=== PATIENT | female | born 1940 | race Caucasian/White ===

== ENCOUNTER 2017-06-04 10:20 | Day surgery (SDC) | payer OTHER ==
[2017-06-04 10:33] LABS: Absolute Lymphocytes (CBC) 1.8 K/uL (0.7-4.9); Absolute Monocytes 0.5 K/uL (0.1-1.3); Absolute Neutrophil 7.5 K/uL (1.8-8.0); Basophils % 0.5 % (0-1.3); Eosinophils % 2.7 % (0-4.4); Lymphocytes % 17.9 % (15.3-44.8); MCH 31.9 pg (27.0-35.0); MCV 92.6 fL (80-100); MPV 6.8 fL (7.6-11.3); Monocytes % 5.2 % (3.3-12.3); RBC Red Blood Cell Count 4.43 M/uL (3.86-4.86)
--- NOTE | 2017-06-04 10:45 | RAD REPORT ---
EXAM DESCRIPTION: Vicki Potter (2 Views)06/04/2017 10:17 am CLINICAL HISTORY: Abdominal pain/abdominal hernia COMPARISON: 2016 FINDINGS: The lungs appear clear of acute infiltrate. The heart is normal size. The aorta is tortuo us/ectatic IMPRESSION: No acute abnormalities displayed
[2017-06-04 10:47] LABS: Bicarbonate 30 mEq/L (21-31); Glucose Level 107 mg/dL (65-120); Potassium 3.4 mEq/L (3.6-5.0); Sodium Level 141 mEq/L (135-145)
[2017-06-04 11:03] LABS: BUN Blood Urea Nitrogen 5 mg/dL (6-20)
[2017-06-04] MEDS ORDERED: Ringers Lactate 1,000 ML IV ONE (12:33)
[2017-06-04] MEDS ORDERED: CEFAZOLIN/SWI 1gm 1 GM/10 ML SYR ONE (13:27)
[2017-06-04] MEDS ORDERED: PROPOFOL 200 MG/20 ML VIAL IV ONE (13:31)
[2017-06-04] MEDS ORDERED: LIDOCAINE 1% MPF 5 ML VIAL ONE (13:32)
[2017-06-04] MEDS ORDERED: FENTANYL CITR 100 MCG/2 ML ONE (13:32)
[2017-06-04] MEDS ORDERED: ROCURONIUM 50 MG/5 ML VIAL IV ONE (13:35)
--- NOTE | 2017-06-04 13:54 | EKG ---
Test Date: 2017-06-04 Test Time: 10:06:29 Lard Tub Washer: PALMIRA MEASUREMENT RESULTS: Intervals: Rate: 68 CA: 146 QRSD: 156 QT: 498 QTc: 529 [place]: P: 27 CA: 146 QRS: -22 T: 104 INTERPRETIVE STATEMENTS: Normal sinus rhythm Left bundle branch block Abnormal ECG Compared to ECG 11/06/2013 06:57:00 no significant change from previous ECG Electronically Signed On 06-04-17 13:53:12 CDT by Ilya Rooney
[2017-06-04] MEDS ORDERED: GLYCOPYRROLATE 0.2 MG/ML SYR ONE (14:18)
--- NOTE | 2017-06-04 14:18 | P.BOP ---
Preoperative diagnosis: tender right inguinal hernia Postoperative diagnosis: same Primary procedure: Open repair of tender right inguinal hernia with mesh Manager Card: Jacqui Orozco) Estimated blood loss: <10cc Specimen: none Findings: as above Anesthesia: General Implants: medium mesh plug and sheet Transferred to: Recovery Room Condition: Good
[2017-06-04] MEDS ORDERED: NEOSTIGMINE 1 MG/ML -5 ML SYRINGE ONE (14:23)
[2017-06-04] MEDS ORDERED: CODEINE 30MG/APAP 300MG TAB ONE (15:28)
[2017-06-04 16:37] VITALS: BP 142/58; TEMP 97.4; O2SAT 94
--- NOTE | 2017-06-05 02:37 | DS ---
Date of Discharge: 06/04/2017 Diagnosis: Tender right inguinal hernia. Procedures: Open repair of tender right inguinal hernia with mesh. Disposition: Home. Activity: As tolerated. No heavy lifting. Followup: Follow up in my office in 1 week. Call for appointment at [phone]. Keep the area dry fo r 48 hours, then may shower. Medications: Include Tylenol No. 3 q.4 hours p.r.n. pain, Bactrim DS p.o. b.i.d. YENNIFER/SIRENA Voice ID: [id number] Report ID: [id number]
--- NOTE | 2017-06-05 02:37 | OP ---
Date of Procedure: 06/04/2017 Surgeon: Nikhil Eason MD Woven Wood Shade Assembler: DEUCE Huber. Preoperative Diagnosis: Tender right inguinal hernia. Postoperative Diagnosis: Tender right inguinal hernia. Procedures: Repair of tender right inguinal hernia with mesh. Specimen: None. Findings: As above. Anesthesia: General plus local. Implants: Medium mesh plug and sheath. Indications: This is the case of a 76-year-old patient with a tender right inguinal hernia. Fully e xplained the benefits, alternatives, and risks of repair, which include, but not limited to infection , bleeding, damage to adjacent structures, anesthesia complication, recurrence, PR, and even . She also understands this may not relieve any symptoms, she might need more than one surgical interve ntion. She was explained also the pros and cons of mesh. It was explained to her in detail, also al lowed to ask questions. She signed a consent. Description Of Procedure: The patient was brought to the operating room, placed in supine position. Anesthesia was done without complication. A time-out was called. Abdomen and inguinal area were pr epped and draped in sterile fashion. Marcaine 0.5% was injected for local anesthetic, followed by sh zoey incision of the skin in the inguinal region. Incision was carried down to fascia. Cass's fasc ia was opened followed by the external oblique aponeurosis opening. We noticed the patient to have a direct hernia. A hernia sac was identified and then imbricated with the help of a mesh plug and sec ured in place with VersaTack and a sheath was placed along the inguinal canal. We made sure the ilio inguinal nerve and iliohypogastric nerve were behind external oblique aponeurosis to avoid any injury . Once we put a sheet over the area, it was secured in place to the pubic tubercle, shelving edge of inguinal ligament, transversalis fascia, and then we proceeded to bring back the nerve back into the inguinal canal, reconstructed the superficial inguinal ring, making sure the nerves were not include d on the stitch line with a 2-0 Prolene. Area was irrigated. Then, the Cass's fascia was closed w ith 3-0 chromic and skin with julian. Sponge count and instrument counts were correct. The patient tolerated the procedure well. The patient was sent to recovery in stable condition. YENNIFER/SIRENA Voice ID: [id number] Report ID: [id number]
== END 2017-06-04 16:30 | disposition home or self-care (01) ==
LOC: OR 10:20
PROVIDERS: ATTEND Surgery
PROC: 0YU50JZ Supplement Right Inguinal Region with Synthetic Substitute, Open Approach (ICD-10-PCS; principal; 2017-06-04 10:30)
DX: K40.90 Unilateral inguinal hernia, without obstruction or gangrene, not specified as recurrent (principal); F17.210 Nicotine dependence, cigarettes, uncomplicated; Z90.710 Acquired absence of both cervix and uterus
CPT/HCPCS: 36415; 49505; 71046; 80048; 85025; 93005; J0690; J2710; J3010

== ENCOUNTER 2017-06-24 10:56 | Emergency (ER) | payer OTHER ==
[2017-06-24 11:45] LABS: Absolute Lymphocytes (CBC) 2.2 K/uL (0.7-4.9); Absolute Monocytes 0.5 K/uL (0.1-1.3); Absolute Neutrophil 7.2 K/uL (1.8-8.0); Basophils % 0.7 % (0-1.3); Eosinophils % 2.6 % (0-4.4); Hematocrit 37.3 % (36.0-45.0); Lymphocytes % 21.5 % (15.3-44.8); MCV 92.3 fL (80-100); MPV 6.3 fL (7.6-11.3); Monocytes % 5.1 % (3.3-12.3); RBC Red Blood Cell Count 4.04 M/uL (3.86-4.86)
[2017-06-24 11:46] LABS: Urine Blood 1+ (NEG); Urine Glucose NEGATIVE (NEG); Urine Protein NEGATIVE (NEG); Urine Specific Gravity <1.005 (1.005-1.030); Urine pH 5.5 (5.0-7.0)
[2017-06-24 11:52] LABS: Bicarbonate 26 mEq/L (21-31); Glucose Level 107 mg/dL (65-120); Potassium 3.5 mEq/L (3.6-5.0); Sodium Level 138 mEq/L (135-145)
[2017-06-24 11:54] LABS: Urine Bacteria 20-50 /HPF (<20); Urine Culture Reflex Order NOT NEEDED; Urine RBC <5 /HPF (NONE SEEN)
[2017-06-24 12:00] LABS: Lipase 28 U/L (22-51)
[2017-06-24 12:07] LABS: ALT/SGPT 12 IU/L (10-60); AST/SGOT 21 IU/L (10-42); Alkaline Phosphatase 84 IU/L (42-121); Amylase Level 65 U/L (28-100); BUN Blood Urea Nitrogen 5 mg/dL (6-20); Bilirubin Direct < 0.1 mg/dL (0-0.2); Bilirubin Total 0.4 mg/dL (0.3-1.2)
--- NOTE | 2017-06-24 12:42 | RAD REPORT ---
EXAM DESCRIPTION: CT - Stone Protocol - 06/24/2017 12:25 pm CLINICAL HISTORY: Flank pain. COMPARISON: 05/16/2017 TECHNIQUE: Axial images were obtained without oral or IV contrast. Lack of contrast limits solid org an and vascular assessment. The [id number] spans the entirety of the system partially obscuring uppermost abdomen and lung bases. Coronal reformatted images were obtained and reviewed. All CT scans are performed using dose optimization technique as appropriate and may include automated exposure control or mA/KV adjustment according to patient size. FINDINGS: The lower lung gould are clear. Imaged portions of the liver and spleen show no suspicious findings on non-contrast imaging. Small be nign hepatic cysts suspected.Cholecystectomy clips. Mild pancreatic atrophy again seen. The adrenal g lands are normal. No pathologic lymphadenopathy in the abdomen or pelvis. No urinary tract stones or obstructive uropathy. No bowel obstruction, free air, free fluid or abscess. The appendix is not identified as a discrete s tructure, however, no secondary findings of appendicitis are identified. Scattered colonic diverticul osis. Postsurgical changes are present in the right inguinal region. Moderate lumbar degenerative changes. 3.6 cm infrarenal abdominal aortic aneurysm is noted. IMPRESSION: No urinary tract stones or obstructive uropathy. No acute process is seen.
[2017-06-24] MEDS ORDERED: POTASSIUM 25 MEQ EFFERV TAB ONE (13:17)
[2017-06-24] MEDS ORDERED: CEFTRIAXONE/SWI 1gm 2 GM/20 ML SYR ONE (13:17)
[2017-06-24] MEDS ORDERED: KETOROLAC 30 MG/ML INJ ONE (13:17)
--- NOTE | 2017-06-24 13:39 | ER ---
Nurse's Notes [facility] Name: Dinorah Judd Age: 76 yrs Sex: Female : 1940 Arrival Date: 06/24/2017 Time: 10:58 Bed 7 Private MD: Tone Cueva H Diagnosis: Urinary tract infection, site not specified Presentation: 06/24 11:01 Presenting complaint: Patient states: I have had flank pain for the last 2 weeks on the la1 left side, pt alert, oriented x3, unsure what year it is, states this is normal for her. Transition of care: patient was not received from another setting of care. Onset of symptoms was June 24, 2017. Initial Sepsis Screen: Does the patient meet any 2 criteria? No. Patient's initial sepsis screen is negative. Does the patient have a suspected source of infection? No. Patient's initial sepsis screen is negative. Care prior to arrival: None. 11:01 Method Of Arrival: Ambulatory la1 11:01 Acuity: RICHAR 3 la1 Historical: - Allergies: 11:02 No Known Allergies; la1 - PMHx: 11:02 None; la1 - Immunization history:: Adult Immunizations up to date. - Social history:: Smoking status: Patient uses tobacco products, smokes one pack cigarettes per day. Screenin:15 Abuse screen: Denies threats or abuse. Denies injuries from another. Nutritional sv screening: No deficits noted. Tuberculosis screening: No symptoms or risk factors identified. Fall Risk None identified. Assessment: 11:20 General: Appears in no apparent distress. comfortable, Behavior is calm, cooperative, sv appropriate for age. Pain: Complains of pain in left low back and left mid back Pain currently is 8 out of 10 on a pain scale. Pain began "about 2 weeks ago" Is intermittent. Neuro: Level of Consciousness is awake, alert, obeys commands, Oriented to person, place, situation, Moves all extremities. Full function Gait is steady. Respiratory: Respiratory effort is even, unlabored, Respiratory pattern is regular, symmetrical. : Urine is cloudy, Reports pain in left flank(s). Derm: Skin is normal. 13:29 Reassessment: Patient appears in no apparent distress at this time. No changes from sv previously documented assessment. Patient and/or family updated on plan of care and expected duration. Pain level reassessed. Patient is alert, oriented x 3, equal unlabored respirations, skin warm/dry/pink. 13:55 Reassessment: Patient appears in no apparent distress at this time. Patient and/or sv family updated on plan of care and expected duration. Pain level reassessed. Patient is alert, oriented x 3, equal unlabored respirations, skin warm/dry/pink. Vital Signs: 11:02 BP 158 / 98; Pulse 85; Resp 19; Temp 98.3; Pulse Ox 100% on R/A; Weight 54.43 kg; la1 Height 5 ft. 2 in. (157.48 cm); 13:15 BP 175 / 67; Pulse 79; Resp 18; Pulse Ox 99% on R/A; jb1 11:02 Body Mass Index 21.95 (54.43 kg, 157.48 cm) la1 ED Course: 10:58 Patient arrived in ED. mr 10:58 Tone Cueva DO is Private Physician. mr 11:02 Triage completed. la1 11:03 Arm band placed on right wrist. la1 11:06 Aly Toledo PA is PHCP. cp 11:06 Luis Carlos Krishnan MD is Attending Physician. cp 11:12 Gina Bell, GUSTAVO is Primary Nurse. sv 11:15 Patient has correct armband on for positive identification. Bed in low position. Call sv light in reach. Door closed. Head of bed elevated. 11:38 Initial lab(s) drawn, by me, sent to lab. Inserted saline lock: 22 gauge in right jb1 antecubital area, using aseptic technique. Blood collected. 12:23 CT completed. Patient moved to CT via wheelchair. Patient moved back from CT. cw1 12:24 CT Stone Protocol In Process Unspecified. EDMS 13:55 No provider procedures requiring assistance completed. IV discontinued, intact, sv bleeding controlled, No redness/swelling at site. Pressure dressing applied. Administered Medications: 13:18 Drug: TORadol 30 mg Route: IVP; Site: right antecubital; sv 13:54 Follow up: Response: No adverse reaction sv 13:20 Drug: Rocephin 2 grams Route: IV; Rate: calculated rate; Site: right antecubital; sv 13:28 Follow up: Response: No adverse reaction; IV Status: Completed infusion; IV Intake: 20mlsv 13:29 Drug: Potassium Effervescent Tablet 25 mEq Route: PO; sv 13:54 Follow up: Response: No adverse reaction sv Intake: 13:28 IV: 20ml; Total: 20ml. sv Outcome: 13:39 Discharge ordered by . cp 13:55 Discharged to home ambulatory. sv 13:55 Condition: stable 13:55 Discharge instructions given to patient, Instructed on discharge instructions, follow up and referral plans. medication usage, Demonstrated understanding of instructions, follow-up care, medications, Prescriptions given X 3. 13:55 Patient left the ED. sv Signatures: Dispatcher [employer] EDBowen Singletary jb1 Gina Bell RN RN Janeth Lopez GuzmanBeatrice davis cw1 Jim Gonzalez RN RN la1 Aly Toledo, PA PA cp
--- NOTE | 2017-06-24 13:39 | EDPHYS ---
Physician Documentation [facility] Name: Dinorah Judd Age: 76 yrs Sex: Female : 1940 Arrival Date: 06/24/2017 Time: 10:58 Bed 7 Private MD: Tone Cueva H ED Physician Luis Carlos Krishnan HPI: 06/24 11:22 This 76 yrs old Female presents to ER via Ambulatory with complaints of Flank cp Pain. 11:22 The patient complains of pain in the left mid back. cp 11:22 The pain radiates to the abdomen. Onset: The symptoms/episode began/occurred 2 week(s) cp ago. Modifying factors: the symptoms are aggravated by palpation/percussion. Associated signs and symptoms: Pertinent negatives: fever, pain radiating to the lower extremities, vomiting. Severity of pain: in the emergency department the pain is unchanged. Historical: - Allergies: 11:02 No Known Allergies; la1 - PMHx: 11:02 None; la1 - Immunization history:: Adult Immunizations up to date. - Social history:: Smoking status: Patient uses tobacco products, smokes one pack cigarettes per day. ROS: 11:30 Constitutional: Negative for body aches, chills, fever, poor PO intake. cp 11:30 Eyes: Negative for injury, pain, redness, and discharge. cp 11:30 ENT: Negative for drainage from ear(s), ear pain, sore throat, difficulty swallowing, difficulty handling secretions. 11:30 Cardiovascular: Negative for chest pain, edema, palpitations. 11:30 Respiratory: Negative for cough, shortness of breath, wheezing. 11:30 Abdomen/GI: Positive for abdominal pain, of the posterior aspect of left lateral abdomen, anterior aspect of left lateral abdomen, left upper quadrant and left lower quadrant, Negative for vomiting, diarrhea, constipation, black/tarry stool, rectal bleeding. 11:30 : Positive for flank pain. 11:30 Skin: Negative for cellulitis, rash. 11:30 Neuro: Negative for altered mental status, headache, weakness. 11:30 All other systems are negative. Exam: 11:34 Constitutional: The patient appears in no acute distress, alert, awake, cp non-diaphoretic, non-toxic, well developed, well nourished. 11:34 Head/Face: Normocephalic, atraumatic. cp 11:34 Eyes: Periorbital structures: appear normal, Pupils: equal, round, and reactive to light and accomodation, Conjunctiva: normal, no exudate, no injection, Sclera: no appreciated abnormality, Lids and lashes: appear normal, bilaterally. 11:34 ENT: External ear(s): are unremarkable, Nose: is normal, Mouth: is normal, Posterior pharynx: is normal, airway is patent, no erythema, no exudate, Voice: is normal. 11:34 Neck: External neck: is normal, ROM/movement: is normal, is supple, without pain, no range of motions limitations, no nuchal rigidity. 11:34 Chest/axilla: Inspection: normal, Palpation: is normal, no crepitus, no tenderness. 11:34 Cardiovascular: Rate: normal, Rhythm: regular. 11:34 Respiratory: the patient does not display signs of respiratory distress, Respirations: normal, no use of accessory muscles, no retractions, no splinting, no tachypnea, labored breathing, is not present, Breath sounds: are clear throughout, no decreased breath sounds, no stridor, no wheezing. 11:34 Abdomen/GI: Inspection: abdomen appears normal, Bowel sounds: active, all quadrants, Palpation: soft, in all quadrants, mild abdominal tenderness, in the posterior aspect of left lateral abdomen, anterior aspect of left lateral abdomen, left upper quadrant and left lower quadrant, rebound tenderness, is not appreciated, voluntary guarding, is not appreciated, involuntary guarding, is not appreciated. 11:34 Back: ROM is normal, CVA tenderness, that is mild, is noted on the left, vertebral tenderness, is not appreciated. 11:34 Skin: cellulitis, is not appreciated, no rash present. 11:34 Neuro: Orientation: no acute changes, Mentation: lucid, able to follow commands. Vital Signs: 11:02 BP 158 / 98; Pulse 85; Resp 19; Temp 98.3; Pulse Ox 100% on R/A; Weight 54.43 kg; la1 Height 5 ft. 2 in. (157.48 cm); 13:15 BP 175 / 67; Pulse 79; Resp 18; Pulse Ox 99% on R/A; jb1 11:02 Body Mass Index 21.95 (54.43 kg, 157.48 cm) la1 MDM: 11:06 Patient medically screened. cp 11:30 Differential diagnosis: nephrolithiasis, pyelonephritis, UTI, diverticulitis, ruptured cp AAA, dissecting AAA. 13:33 Data reviewed: vital signs, nurses notes, lab test result(s), radiologic studies, CT cp scan. 13:33 Counseling: I had a detailed discussion with the patient and/or guardian regarding: the cp historical points, exam findings, and any diagnostic results supporting the discharge/admit diagnosis, lab results, radiology results, to return to the emergency department if symptoms worsen or persist or if there are any questions or concerns that arise at home. Response to treatment: the patient's symptoms have mildly improved after treatment, and as a result, I will discharge patient. 06/24 11:22 Order name: Amylase, Serum; Complete Time: 12:28 cp 06/24 11:22 Order name: Basic Metabolic Panel; Complete Time: 12:28 cp 06/24 12:28 Interpretation: Normal except: K 3.5; BUN 5. cp 06/24 11:22 Order name: CBC with Diff; Complete Time: 11:56 cp 06/24 12:29 Interpretation: Normal except: MPV 6.3. cp 06/24 11:22 Order name: Hepatic Function; Complete Time: 12:28 cp 06/24 11:22 Order name: Lipase; Complete Time: 12:28 cp 06/24 11:22 Order name: Urine Microscopic Only; Complete Time: 11:56 cp 06/24 12:29 Interpretation: Normal except: UWBC 10-20; UBACT 20-50; SQEPI 20-50. cp 06/24 11:22 Order name: IV Saline Lock; Complete Time: 11:39 cp 06/24 11:22 Order name: Labs collected and sent; Complete Time: 11:39 cp 06/24 11:30 Order name: Urine Dipstick--Ancillary (enter results); Complete Time: 11:56 ag 06/24 13:12 Interpretation: Normal except: UBLD 1+; UESTR 1+. cp 06/24 11:58 Order name: CT Stone Protocol; Complete Time: 12:51 cp 06/24 11:22 Order name: Urine Dipstick-Ancillary (obtain specimen); Complete Time: 11:39 cp Administered Medications: 13:18 Drug: TORadol 30 mg Route: IVP; Site: right antecubital; sv 13:54 Follow up: Response: No adverse reaction sv 13:20 Drug: Rocephin 2 grams Route: IV; Rate: calculated rate; Site: right antecubital; sv 13:28 Follow up: Response: No adverse reaction; IV Status: Completed infusion; IV Intake: 20mlsv 13:29 Drug: Potassium Effervescent Tablet 25 mEq Route: PO; sv 13:54 Follow up: Response: No adverse reaction sv Disposition: 06/24/17 13:39 Discharged to Home. Impression: Urinary tract infection, site not specified. - Condition is Stable. - Discharge Instructions: Urinary Tract Infection. - Prescriptions for Pyridium 200 mg Oral Tablet - take 1 tablet by ORAL route every 8 hours for 3 days; 6 tablet. Zofran 4 mg Oral Tablet - take 1 tablet by ORAL route every 12 hours As needed; 20 tablet. Bactrim DS 800- 160 mg Oral Tablet - take 1 tablet by ORAL route every 12 hours for 7 days; 14 tablet. - Medication Reconciliation Form, Thank You Letter, Antibiotic Education, Prescription Opioid Use form. - Follow up: Private Physician; When: 1 - 2 days; Reason: Recheck today's complaints. - Problem is new. - Symptoms have improved. Addendum: 07/03/2017 05:51 Co-signature as Attending Physician, Luis Carlos Krishnan MD I agree with the assessment and w a plan of care. Signatures: Dispatcher [employer] [facility] Gina Bell RN RN Jim Gonzalez RN RN la1 Aly Toledo PA PA cp Appiah, William, MD MD dc Corrections: (The following items were deleted from the chart) 06/24 11:50 11:23 Creatinine for Radiology+C.LAB.BRZ ordered. [facility] 13:55 13:39 06/24/2017 13:39 Discharged to Home. Impression: Urinary tract infection, site sv not specified. Condition is Stable. Forms are Medication Reconciliation Form, Thank You Letter, Antibiotic Education, Prescription Opioid Use. Follow up: Private Physician; When: 1 - 2 days; Reason: Recheck today's complaints. Problem is new. Symptoms have improved. cp
[2017-06-24 14:02] VITALS: TEMP 98.3
[2017-06-24 14:03] VITALS: BP 175/67; O2SAT 99
== END 2017-06-24 13:55 | disposition home or self-care (01) ==
LOC: ER 10:56
DX: N39.0 Urinary tract infection, site not specified (principal); F17.210 Nicotine dependence, cigarettes, uncomplicated
CPT/HCPCS: 74176; 76377; 80048; 80076; 82150; 83690; 85025; J0696; 81003; 81015; 96374; 96375; 99284

== ENCOUNTER 2017-10-06 11:59 | Emergency (ER) | payer OTHER ==
[2017-10-06] MEDS ORDERED: NA CHLORIDE 0.9% 500 ML ONE (15:56)
[2017-10-06] MEDS ORDERED: ASPIRIN 81 MG CHEWABLE TABLET ONE (16:41)
[2017-10-06] MEDS ORDERED: KETOROLAC 30 MG/ML INJ ONE (16:41)
--- NOTE | 2017-10-06 17:13 | RAD REPORT ---
EXAM DESCRIPTION: RAD - Humerus Left - 10/06/2017 4:27 pm CLINICAL HISTORY: Left arm pain status post fall FINDINGS: No fracture is seen. The bones are osteoporotic. No bony destructive lesion is noted
[2017-10-06 17:14] LABS: Protime INR 1.07
--- NOTE | 2017-10-06 17:16 | RAD REPORT ---
EXAM DESCRIPTION: RAD - Humerus Right - 10/06/2017 4:27 pm CLINICAL HISTORY: Right arm pain FINDINGS: No fracture is seen. The bones are osteoporotic. No bony destructive lesion is noted
[2017-10-06 17:38] LABS: Albumin 4.4 g/dL (3.4-5.0); Bilirubin Direct 0.1 mg/dL (0-0.2); Bilirubin Total 0.5 mg/dL (0.2-1.0); CKMB Creatine Kinase MB 2.1 ng/mL (0.3-3.6); Magnesium 2.2 mg/dL (1.8-2.4); Protein, Total 8.1 g/dL (6.4-8.2)
[2017-10-06 17:40] LABS: Potassium 2.9 mmol/L (3.5-5.1)
[2017-10-06 17:44] LABS: Urine Blood 1+ (NEG); Urine Glucose NEGATIVE (NEG); Urine Protein NEGATIVE (NEG)
[2017-10-06] MEDS ORDERED: POTASSIUM 25 MEQ EFFERV TAB ONE (18:30)
[2017-10-06] MEDS ORDERED: KCL 20 MEQ/100 mL IVPB 20 MEQ/100 ML BAG IV ONE (18:30)
[2017-10-06 18:51] LABS: Absolute Lymphocytes (CBC) 2.7 K/uL (0.7-4.9); Absolute Monocytes 0.4 K/uL (0.1-1.3); Absolute Neutrophil 7.1 K/uL (1.8-8.0); Basophils % 1.4 % (0-1.3); Eosinophils % 1.7 % (0-4.4); Hematocrit 43.8 % (36.0-45.0); Lymphocytes % 25.3 % (15.3-44.8); MCH 32.8 pg (27.0-35.0); MPV 7.9 fL (7.6-11.3); Monocytes % 4.2 % (3.3-12.3); RBC Red Blood Cell Count 4.56 M/uL (3.86-4.86)
[2017-10-06 18:57] LABS: Blood Morphology Comment NOT SEEN (NOT SEEN); Platelet Estimate ADEQ; Urine White Blood Cell Casts OK
[2017-10-06] MEDS ORDERED: ACETAMINOPHEN 500 MG TAB ONE (20:21)
--- NOTE | 2017-10-06 21:45 | EDPHYS ---
Physician Documentation [facility] Name: Dinorah Judd Age: 76 yrs Sex: Female : 1940 Arrival Date: 10/06/2017 Time: 12:06 Bed 25 Private MD: Tone Cueva H ED Physician Luis Carlos Krishnan HPI: 10/06 15:30 This 76 yrs old Female presents to ER via Ambulatory with complaints of Arm cp Pain. 15:30 The patient or guardian complains of pain, that is acute. The complaints affect the cp right upper arm, left upper arm. Context: resulted from unknown cause. 15:30 Onset: The symptoms/episode began/occurred 1 month(s) ago. Treatment prior to arrival cp includes: no previous treatment. Associated signs and symptoms: Pertinent negatives: decreased range of motion, numbness, weakness. Severity of symptoms: in the emergency department the symptoms are unchanged, despite home interventions. Historical: - Allergies: 12:26 No Known Allergies; ss - Immunization history:: Adult Immunizations up to date. - Social history:: Smoking status: Patient/guardian denies using tobacco. - Ebola Screening: : Patient denies exposure to infectious person Patient denies travel to an Ebola-affected area in the 21 days before illness onset. ROS: 15:35 Constitutional: Negative for body aches, chills, fatigue, fever, poor PO intake. cp 15:35 Eyes: Negative for injury, pain, redness, and discharge. cp 15:35 ENT: Negative for drainage from ear(s), ear pain, sore throat, difficulty swallowing, difficulty handling secretions. 15:35 Cardiovascular: Negative for chest pain, edema, palpitations. 15:35 Respiratory: Negative for cough, pleurisy, shortness of breath, wheezing. 15:35 Abdomen/GI: Negative for abdominal pain, nausea, vomiting, and diarrhea, constipation, anorexia, black/tarry stool, rectal bleeding. 15:35 Back: Negative for pain at rest, pain with movement, radiated pain. 15:35 MS/extremity: Positive for pain, tenderness, of the right upper arm and left upper arm, Negative for injury or acute deformity, decreased range of motion, paresthesias. 15:35 Skin: Negative for cellulitis, rash. 15:35 Neuro: Negative for altered mental status, headache, syncope, near syncope, weakness. 15:35 All other systems are negative. Exam: 15:42 Constitutional: The patient appears in no acute distress, alert, awake, cp non-diaphoretic, non-toxic, well developed, well nourished. 15:42 Head/Face: Normocephalic, atraumatic. cp 15:42 Eyes: Periorbital structures: appear normal, Pupils: equal, round, and reactive to light and accomodation, Extraocular movements: intact throughout, Conjunctiva: normal, no exudate, no injection, Lids and lashes: appear normal, bilaterally. 15:42 ENT: External ear(s): are unremarkable, Nose: is normal, Mouth: Lips: moist, Oral mucosa: moist, Posterior pharynx: is normal, airway is patent, no erythema, no exudate, Voice: is normal. 15:42 Neck: C-spine: vertebral tenderness, is not appreciated, crepitus, is not appreciated, ROM/movement: is normal, is supple, without pain, no range of motions limitations, no nuchal rigidity, Lymph nodes: no appreciated lymphadenopathy. 15:42 Chest/axilla: Inspection: normal, Palpation: is normal, no crepitus, no tenderness. 15:42 Cardiovascular: Rate: normal, Rhythm: regular, Pulses: Pulses are 2+ in right radial artery and left radial artery. Edema: is not appreciated, JVD: is not appreciated. 15:42 Respiratory: the patient does not display signs of respiratory distress, Respirations: normal, no use of accessory muscles, no retractions, no splinting, no tachypnea, labored breathing, is not present, Breath sounds: are clear throughout, no decreased breath sounds, no stridor, no wheezing. 15:42 Abdomen/GI: Inspection: abdomen appears normal, Palpation: abdomen is soft and non-tender, in all quadrants, rebound tenderness, is not appreciated, voluntary guarding, is not appreciated, involuntary guarding, is not appreciated. 15:42 Back: ROM is normal, vertebral tenderness, is not appreciated, muscle spasm, is not present. 15:42 Skin: cellulitis, is not appreciated, no rash present. 15:42 Neuro: Orientation: to person, place \T\ time. Mentation: lucid, able to follow commands, Cerebellar function: is grossly normal, Motor: moves all fours, strength is normal, Sensation: no obvious gross deficits. 15:45 ECG was reviewed by the Attending Physician. cp Vital Signs: 12:26 BP 135 / 88; Pulse 89; Resp 16; Temp 97.6(TE); Pulse Ox 99% on R/A; Weight 54.43 kg; ss Height 5 ft. 5 in. (165.10 cm); Pain 7/10; 15:19 BP 144 / 65; Pulse 70; Pulse Ox 100% on R/A; rv 16:48 BP 181 / 74 RA Supine (auto/reg); Pulse 62; Pulse Ox 100% on R/A; jp3 17:31 BP 171 / 77; Pulse 62; Resp 15; Pulse Ox 100% on R/A; hb 21:06 BP 154 / 64; Pulse 70; Pulse Ox 96% on R/A; rv 21:43 BP 144 / 70; Pulse 74; Pulse Ox 94% on R/A; rv 12:26 Body Mass Index 19.97 (54.43 kg, 165.10 cm) ss MDM: 15:13 Patient medically screened. cp 16:00 Differential diagnosis: closed fracture, contusion, muscle strain, angina, electrolyte cp abnormality. 21:44 Data reviewed: vital signs, nurses notes, lab test result(s), EKG, radiologic studies, cp plain films. 21:44 Test interpretation: by ED physician or midlevel provider: ECG, plain radiologic cp studies. Counseling: I had a detailed discussion with the patient and/or guardian regarding: the historical points, exam findings, and any diagnostic results supporting the discharge/admit diagnosis, lab results, radiology results, the need for outpatient follow up, a family practitioner, to return to the emergency department if symptoms worsen or persist or if there are any questions or concerns that arise at home. Response to treatment: the patient's symptoms have markedly improved after treatment, VSS. Pain improved and potassium replaced, and as a result, I will discharge patient. 10/06 15:20 Order name: CPK; Complete Time: 18:01 cp 10/06 15:20 Order name: Basic Metabolic Panel; Complete Time: 18:01 cp 10/06 18:01 Interpretation: Normal except: K 2.9; BUN 4; GFR 82. cp 10/06 15:20 Order name: CBC with Diff; Complete Time: 21:43 cp 10/06 15:20 Order name: Ckmb; Complete Time: 18:01 cp 10/06 15:20 Order name: LFT's; Complete Time: 18: cp 10/06 15:20 Order name: Magnesium; Complete Time: 18:01 cp 10/06 15:20 Order name: PT-INR; Complete Time: 18:01 cp 10/06 15:20 Order name: Ptt, Activated; Complete Time: 18:01 cp 10/06 15:20 Order name: Troponin (emerg Dept Use Only); Complete Time: 18: cp 10/06 15:33 Order name: XRAY Humerus RIGHT; Complete Time: 18: cp 10/06 15:33 Order name: XRAY Humerus LEFT; Complete Time: 18: cp 10/06 16:57 Order name: Urine Dipstick--Ancillary (enter results); Complete Time: 18:01 eb 10/06 18:57 Order name: CBC Smear Scan; Complete Time: 21:43 EDMS 10/06 19:44 Order name: Potassium: repeat after administration of potassium; Complete Time: 21:43 cp 10/06 21:44 Interpretation: Within normal limits: K 5.0. cp 08/ 15:20 Order name: EKG; Complete Time: 15:20 cp 10/06 15:20 Order name: Cardiac monitoring; Complete Time: 16:44 cp 10/06 15:20 Order name: EKG - Nurse/Tech; Complete Time: 16:45 cp 10/06 15:20 Order name: IV Saline Lock; Complete Time: 16:45 cp 10/06 15:20 Order name: Labs collected and sent; Complete Time: 16:45 cp 10/06 15:20 Order name: O2 Per Protocol; Complete Time: 16:45 cp 10/06 15:20 Order name: O2 Sat Monitoring; Complete Time: 16:45 cp 10/06 15:20 Order name: Urine Dipstick-Ancillary (obtain specimen); Complete Time: 16:45 cp 10/06 19:44 Order name: EKG - Nurse/Tech: repeat after administration of potassium; Complete Time: cp 21:01 EC:45 Rate is 60 beats/min. Rhythm is regular. IN interval is normal. QRS interval is cp prolonged at 156 msec. QT interval is prolonged at 518 msec. Clinical impression: Abnormal EKG without significant change. Interpreted by me. Reviewed by me. Administered Medications: 16:34 Drug: NS 0.9% 500 ml Route: IV; Rate: bolus; Site: left hand; rv 16:40 Drug: TORadol 30 mg Route: IVP; Site: left hand; rv 18:52 Follow up: Response: No adverse reaction rv 16:40 Drug: Aspirin Chewable Tablet 324 mg Route: PO; rv 18:52 Follow up: Response: No adverse reaction rv 18:30 Drug: Potassium Chloride 20 mEq Route: IV; Rate: calculated rate; Site: left hand; rv 18:30 Drug: Potassium Effervescent Tablet 50 mEq Route: PO; rv 18:52 Follow up: Response: No adverse reaction rv 20:30 Drug: Tylenol 1000 mg Route: PO; rv 21:01 Follow up: Response: No adverse reaction rv Disposition: 10/06/17 21:44 Discharged to Home. Impression: Pain in upper arm - Bilateral, Hypokalemia. - Condition is Stable. - Discharge Instructions: Potassium Content of Foods, Musculoskeletal Pain, Hypokalemia. - Prescriptions for Mobic 7.5 mg Oral Tablet - take 1 tablet by ORAL route once daily take with food; 20 tablet. Cyclobenzaprine 10 mg Oral Tablet - take 1 tablet by ORAL route every 8 hours As needed no driving while taking medication; 20 tablet. - Medication Reconciliation Form, Thank You Letter, Antibiotic Education, Prescription Opioid Use form. - Follow up: Private Physician; When: 2 - 3 days; Reason: Recheck today's complaints. - Problem is new. - Symptoms have improved. Addendum: 10/08/2017 11:28 Co-signature as Attending Physician, Luis Carlos Krishnan MD I agree with the assessment and w a plan of care. Signatures: Dispatcher [employer] EDDebra Krishnan RN RN Aly Montoya PA PA cp Appiah, William, MD MD wa Vicente, Ronaldo RN RN rv Corrections: (The following items were deleted from the chart) 10/06 21:52 21:44 10/06/2017 21:44 Discharged to Home. Impression: Pain in upper arm - Bilateral; rv Hypokalemia. Condition is Stable. Forms are Medication Reconciliation Form, Thank You Letter, Antibiotic Education, Prescription Opioid Use. Follow up: Private Physician; When: 2 - 3 days; Reason: Recheck today's complaints. Problem is new. Symptoms have improved. cp
--- NOTE | 2017-10-06 21:45 | ER ---
Nurse's Notes [facility] Name: Dinorah Judd Age: 76 yrs Sex: Female : 1940 Arrival Date: 10/06/2017 Time: 12:06 Bed 25 Private MD: Tone Cueva H Diagnosis: Pain in upper arm-Bilateral;Hypokalemia Presentation: 10/06 12:26 Presenting complaint: Patient states: bilateral arm pain that began 1 month ago. no ss redness or swelling noted. ROM intact. Transition of care: patient was not received from another setting of care. Onset of symptoms is unknown. Risk Assessment: Do you want to hurt yourself or someone else? Patient reports no desire to harm self or others. Initial Sepsis Screen: Does the patient meet any 2 criteria? No. Patient's initial sepsis screen is negative. Does the patient have a suspected source of infection? No. Patient's initial sepsis screen is negative. Care prior to arrival: None. 12:26 Method Of Arrival: Ambulatory ss 12:26 Acuity: RICHAR 4 ss Historical: - Allergies: 12:26 No Known Allergies; ss - Immunization history:: Adult Immunizations up to date. - Social history:: Smoking status: Patient/guardian denies using tobacco. - Ebola Screening: : Patient denies exposure to infectious person Patient denies travel to an Ebola-affected area in the 21 days before illness onset. Screenin:18 Abuse screen: Denies threats or abuse. Denies injuries from another. Nutritional rv screening: No deficits noted. Tuberculosis screening: No symptoms or risk factors identified. Fall Risk None identified. Assessment: 15:15 General: Appears in no apparent distress. comfortable, Behavior is calm, cooperative. rv Pain: Complains of pain in BOTH ARMS. Neuro: Level of Consciousness is awake, alert, obeys commands, Oriented to person, place, time, situation. Cardiovascular: Capillary refill < 3 seconds. Respiratory: Airway is patent. GI: No signs and/or symptoms were reported involving the gastrointestinal system. : No signs and/or symptoms were reported regarding the genitourinary system. EENT: No signs and/or symptoms were reported regarding the EENT system. Derm: Skin is intact. 17:00 Reassessment: Patient appears in no apparent distress at this time. Patient and/or hb family updated on plan of care and expected duration. Pain level reassessed. Patient is alert, oriented x 3, equal unlabored respirations, skin warm/dry/pink. 18:00 Reassessment: Patient appears in no apparent distress at this time. Patient and/or rv family updated on plan of care and expected duration. Pain level reassessed. Patient is alert, oriented x 3, equal unlabored respirations, skin warm/dry/pink. 19:00 Reassessment: Patient appears in no apparent distress at this time. Patient and/or rv family updated on plan of care and expected duration. Pain level reassessed. Patient is alert, oriented x 3, equal unlabored respirations, skin warm/dry/pink. 20:00 Reassessment: Patient appears in no apparent distress at this time. Patient and/or rv family updated on plan of care and expected duration. Pain level reassessed. Patient is alert, oriented x 3, equal unlabored respirations, skin warm/dry/pink. Vital Signs: 12:26 BP 135 / 88; Pulse 89; Resp 16; Temp 97.6(TE); Pulse Ox 99% on R/A; Weight 54.43 kg; ss Height 5 ft. 5 in. (165.10 cm); Pain 7/10; 15:19 BP 144 / 65; Pulse 70; Pulse Ox 100% on R/A; rv 16:48 BP 181 / 74 RA Supine (auto/reg); Pulse 62; Pulse Ox 100% on R/A; jp3 17:31 BP 171 / 77; Pulse 62; Resp 15; Pulse Ox 100% on R/A; hb 21:06 BP 154 / 64; Pulse 70; Pulse Ox 96% on R/A; rv 21:43 BP 144 / 70; Pulse 74; Pulse Ox 94% on R/A; rv 12:26 Body Mass Index 19.97 (54.43 kg, 165.10 cm) ED Course: 12:06 Patient arrived in ED. as 12:06 Tone Cueva DO is Private Physician. as 12:26 Triage completed. ss 12:26 Arm band placed on right wrist. ss 14:54 Patient placed in an exam room, on a stretcher. sv 15:13 Aly Toledo PA is PHCP. cp 15:13 Luis Carlos Krishnan MD is Attending Physician. cp 15:18 Patient has correct armband on for positive identification. Bed in low position. Call rv light in reach. Side rails up X 1. Pulse ox on. NIBP on. 16:20 Inserted saline lock: 24 gauge in left hand, using aseptic technique. rv 16:24 X-ray completed. Patient tolerated procedure well. kw 16:27 XRAY Humerus RIGHT In Process Unspecified. EDMS 16:27 XRAY Humerus LEFT In Process Unspecified. EDMS 16:57 Warm blanket given. Pillow given. jp3 18:15 Lab(s) recollected, by me, sent to lab. jp3 20:30 Potassium: repeat after administration of potassium Sent. jp3 21:00 Inserted saline lock: 24 gauge in left forearm, using aseptic technique. rv 21:01 Potassium: repeat after administration of potassium Sent. rv 21:51 No provider procedures requiring assistance completed. IV discontinued, bleeding rv controlled, No redness/swelling at site. Pressure dressing applied. Administered Medications: 16:34 Drug: NS 0.9% 500 ml Route: IV; Rate: bolus; Site: left hand; rv 16:40 Drug: TORadol 30 mg Route: IVP; Site: left hand; rv 18:52 Follow up: Response: No adverse reaction rv 16:40 Drug: Aspirin Chewable Tablet 324 mg Route: PO; rv 18:52 Follow up: Response: No adverse reaction rv 18:30 Drug: Potassium Chloride 20 mEq Route: IV; Rate: calculated rate; Site: left hand; rv 18:30 Drug: Potassium Effervescent Tablet 50 mEq Route: PO; rv 18:52 Follow up: Response: No adverse reaction rv 20:30 Drug: Tylenol 1000 mg Route: PO; rv 21:01 Follow up: Response: No adverse reaction rv Outcome: 21:44 Discharge ordered by MD. cp 21:52 Discharged to home ambulatory. rv 21:52 Condition: improved 21:52 Discharge instructions given to patient, Instructed on discharge instructions, follow up and referral plans. medication usage, Prescriptions given X 2. 21:52 Patient left the ED. rv Signatures: Dispatcher [employer] Gina Meyer RN RN sv Martinez, Amelia as Smirch, Shelby, RN RN ss Whitley, Kimberlee kw Page, Corey, PA PA cp Chinyere Wick RN RN hb Vicente, Ronaldo, RN RN rv Yash Hudson jp3
[2017-10-06 21:59] VITALS: TEMP 97.6
[2017-10-06 22:05] VITALS: BP 144/70; O2SAT 94
--- NOTE | 2017-10-07 06:29 | EKG ---
Test Date: 2017-10-06 Test Time: 20:54:46 Net Programmer Analyst: MEASUREMENT RESULTS: Intervals: Rate: 71 DE: 150 QRSD: 148 QT: 488 QTc: 530 [place]: P: 38 DE: 150 QRS: 9 T: 96 INTERPRETIVE STATEMENTS: Normal sinus rhythm Left ventricular hypertrophy with QRS widening and repolarization abnormality Abnormal ECG Compared to ECG 06/04/2017 10:06:29 Left ventricular hypertrophy now present Early repolarization now present Left bundle-branch block no longer present Electronically Signed On 10-07-17 06:28:55 CDT by Ilya Rooney
--- NOTE | 2017-10-07 16:19 | EKG ---
Test Date: 2017-10-06 Test Time: 15:34:52 Train Conductor: MEASUREMENT RESULTS: Intervals: Rate: 60 WA: 142 QRSD: 156 QT: 518 QTc: 518 [place]: P: 58 WA: 142 QRS: 6 T: 121 INTERPRETIVE STATEMENTS: Normal sinus rhythm Left bundle branch block Abnormal ECG Compared to ECG 06/04/2017 10:06:29 no significant change from previous ECG Electronically Signed On 10-07-17 16:18:46 CDT by Ilya Rooney
== END 2017-10-06 21:52 | disposition home or self-care (01) ==
LOC: ER 11:59
DX: M79.622 Pain in left upper arm (principal); M79.621 Pain in right upper arm; I44.7 Left bundle-branch block, unspecified; E87.6 Hypokalemia; M81.0 Age-related osteoporosis without current pathological fracture
CPT/HCPCS: 36415; 80048; 80076; 81003; 82550; 82553; 83735; 84132; 84484; 85025; 85610; 85730; 93005; 96374; 96375; 99284

== ENCOUNTER 2018-05-28 11:22 | Emergency (ER) | payer OTHER ==
[2018-05-28 12:48] LABS: Urine Blood 1+ (NEG); Urine Glucose NEGATIVE (NEG); Urine Protein NEGATIVE (NEG); Urine Specific Gravity <1.005 (1.005-1.030)
[2018-05-28 13:15] LABS: Absolute Lymphocytes (CBC) 1.9 K/uL (0.7-4.9); Absolute Monocytes 0.6 K/uL (0.1-1.3); Absolute Neutrophil 8.1 K/uL (1.8-8.0); Basophils % 0.7 % (0-1.3); Eosinophils % 2.1 % (0-4.4); Hematocrit 39.1 % (36.0-45.0); Lymphocytes % 17.4 % (15.3-44.8); MPV 6.1 fL (7.6-11.3); Monocytes % 5.7 % (3.3-12.3); RBC Red Blood Cell Count 4.18 M/uL (3.86-4.86)
[2018-05-28 13:26] LABS: BUN Blood Urea Nitrogen 6 mg/dL (7-18); Bicarbonate 29 mmol/L (21-32); Glucose Level 103 mg/dL (74-106); Potassium 3.6 mmol/L (3.5-5.1); Sodium Level 140 mmol/L (136-145)
--- NOTE | 2018-05-28 15:03 | RAD REPORT ---
EXAM DESCRIPTION: CT - Abdomen Pelvis W Contrast - 05/28/2018 2:46 pm CLINICAL HISTORY: Abdominal pain COMPARISON: May 2017 TECHNIQUE: Computed axial tomography of the abdomen pelvis was obtained. 100 cc Isovue-300 was admin istered intravenously. Oral contrast was not requested which limits evaluation of bowel. All CT scans are performed using dose optimization technique as appropriate and may include automated exposure control or mA/KV adjustment according to patient size. FINDINGS: Small hepatic cyst. Chronic pneumobilia. Cholecystectomy. Spleen and adrenals are unremarkable. Extrarenal pelves present. Kidneys otherwise appear unremarkabl e. Pancreatic head is enlarged. Remainder of the pancreas is atrophic. A mass within the pancreatic head is not seen. Mild stranding within the peripancreatic fat. Aneurysm of the infrarenal abdominal aorta a 3.8 centimeters in AP diameter No evidence of diverticulitis IMPRESSION: Pancreatic head is enlarged which may indicate neoplasm or pancreatitis. 3.8 centimeter infrarenal abdominal aortic aneurysm
[2018-05-28] MEDS ORDERED: ONDANSETRON 4 MG/2 ML VIAL ONE (15:43)
[2018-05-28] MEDS ORDERED: MORPHINE 2 MG/ML SYR ONE (15:43)
[2018-05-28] MEDS ORDERED: NA CHLORIDE 0.9% 1,000 ML ONE (15:43)
--- NOTE | 2018-05-28 15:51 | EDPHYS ---
Physician Documentation [facility] Name: Dinorah Judd Age: 77 yrs Sex: Female : 1940 Arrival Date: 05/28/2018 Time: 11:24 Bed 16 Private MD: Tone Cueva H ED Physician Aly Linn HPI: 05/28 13:42 This 77 yrs old Female presents to ER via Ambulatory with complaints of kb Abdominal Pain. 13:42 The patient presents with abdominal pain in the left upper quadrant, in the left lower kb quadrant. Onset: The symptoms/episode began/occurred 1 month(s) ago. The symptoms do not radiate. Associated signs and symptoms: none. The symptoms are described as constant. Modifying factors: The symptoms are alleviated by nothing, the symptoms are aggravated by nothing. Severity of pain: At its worst the pain was moderate in the emergency department the pain is unchanged. The patient has not experienced similar symptoms in the past. The patient has not recently seen a physician. Pt reports left side pain for one month that is getting worse. denies any other symptoms. Historical: - Allergies: 11:27 No Known Allergies; hj - PMHx: 11:27 None; hj - PSHx: 11:27 Hysterectomy; hj - Immunization history:: Adult Immunizations up to date. - Ebola Screening: : Patient negative for fever greater than or equal to 101.5 degrees Fahrenheit, and additional compatible Ebola Virus Disease symptoms. - Social history:: Smoking status: Patient uses tobacco products, smokes one pack cigarettes per day. ROS: 13:39 Constitutional: Negative for fever, chills, and weight loss, Cardiovascular: Negative kb for chest pain, palpitations, and edema, Respiratory: Negative for shortness of breath, cough, wheezing, and pleuritic chest pain, Back: Negative for injury and pain, : Negative for injury, bleeding, discharge, and swelling, MS/Extremity: Negative for injury and deformity, Skin: Negative for injury, rash, and discoloration, Neuro: Negative for headache, weakness, numbness, tingling, and seizure. 13:39 Abdomen/GI: Positive for abdominal pain, Negative for nausea, vomiting, and diarrhea. Exam: 13:39 Constitutional: This is a well developed, well nourished patient who is awake, alert, kb and in no acute distress. Head/Face: Normocephalic, atraumatic. Neck: Trachea midline, no thyromegaly or masses palpated, and no cervical lymphadenopathy. Supple, full range of motion without nuchal rigidity, or vertebral point tenderness. No Meningismus. Chest/axilla: Normal chest wall appearance and motion. Nontender with no deformity. No lesions are appreciated. Cardiovascular: Regular rate and rhythm with a normal S1 and S2. No gallops, murmurs, or rubs. Normal PMI, no JVD. No pulse deficits. Respiratory: Lungs have equal breath sounds bilaterally, clear to auscultation and percussion. No rales, rhonchi or wheezes noted. No increased work of breathing, no retractions or nasal flaring. Back: No spinal tenderness. No costovertebral tenderness. Full range of motion. Skin: Warm, dry with normal turgor. Normal color with no rashes, no lesions, and no evidence of cellulitis. MS/ Extremity: Pulses equal, no cyanosis. Neurovascular intact. Full, normal range of motion. Neuro: Awake and alert, GCS 15, oriented to person, place, time, and situation. Cranial nerves II-XII grossly intact. Motor strength 5/5 in all extremities. Sensory grossly intact. Cerebellar exam normal. Normal gait. 13:39 Abdomen/GI: Inspection: abdomen appears normal, Bowel sounds: normal, in all quadrants, Palpation: soft, in all quadrants, moderate abdominal tenderness, in the right lower quadrant and left lower quadrant. Vital Signs: 11:27 BP 131 / 99; Pulse 78; Resp 18; Temp 98.4(O); Pulse Ox 97% on R/A; Weight 54.43 kg; hj Height 5 ft. 2 in. (157.48 cm); Pain 7/10; 12:30 BP 153 / 71; Pulse 73; Resp 17; Pulse Ox 98% on R/A; rb1 13:30 BP 163 / 76; Pulse 72; Resp 15; Pulse Ox 97% on R/A; rb1 15:30 BP 181 / 70; Pulse 68; Resp 19; Pulse Ox 97% ; rb1 16:15 BP 185 / 92; Pulse 75; Resp 19; Pulse Ox 99% on R/A; rb1 11:27 Body Mass Index 21.95 (54.43 kg, 157.48 cm) hj 15:30 Pt. just walked back from the restroom. rb1 MDM: 12:29 Patient medically screened. kb 13:42 Data reviewed: vital signs, nurses notes. Data interpreted: Pulse oximetry: on room air kb is 97 %. Interpretation: normal. 15:50 Counseling: I had a detailed discussion with the patient and/or guardian regarding: the kb historical points, exam findings, and any diagnostic results supporting the discharge/admit diagnosis, lab results, radiology results, the need for outpatient follow up, a family practitioner, a strategic manager, to return to the emergency department if symptoms worsen or persist or if there are any questions or concerns that arise at home. 05/28 12:37 Order name: Basic Metabolic Panel; Complete Time: 13:27 kb 05/28 12:37 Order name: CBC with Diff; Complete Time: 13:25 kb 05/28 12:46 Order name: Urine Dipstick--Ancillary (enter results); Complete Time: 12:50 bd 05/28 14:35 Order name: Urine Microscopic Only; Complete Time: 16:39 kb 05/28 15:08 Order name: Lipase; Complete Time: 15:31 kb 05/28 16:39 Order name: Urine Culture EDMS 05/28 12:37 Order name: IV Saline Lock; Complete Time: 13:38 kb 05/28 12:37 Order name: Labs collected and sent; Complete Time: 13:38 kb 05/28 14:35 Order name: CT Abd/Pelvis - W/Contrast; Complete Time: 15:06 kb Administered Medications: 15:40 Drug: NS 0.9% 1000 ml Route: IV; Rate: 1000 ml; Site: right antecubital; rb1 16:10 Follow up: IV Status: Completed infusion; IV Intake: 275ml rb1 15:40 Drug: morphine 2 mg Route: IVP; Site: right antecubital; rb1 15:55 Follow up: Response: No adverse reaction; Pain is decreased rb1 15:40 Drug: Zofran 4 mg Route: IVP; Site: right antecubital; rb1 15:55 Follow up: Response: No adverse reaction rb1 Disposition: 05/29 06:40 Co-signature as Attending Physician, Aly Linn MD I agree with the assessment and juliane plan of care. Disposition: 05/28/18 15:50 Discharged to Home. Impression: Abdominal aortic aneurysm, without rupture - 3.8cm, Lower abdominal pain, unspecified, Enlarged pancreatic head. - Condition is Stable. - Discharge Instructions: Abdominal Pain, Adult, [id number], Abdominal Aortic Aneurysm, [id number]. - Prescriptions for Diclofenac Sodium 75 mg Oral Tablet, Delayed Release (E.C.) - take 1 tablet by ORAL route 2 times per day As needed; 30 tablet. - Medication Reconciliation Form, Thank You Letter, Antibiotic Education, Prescription Opioid Use form. - Follow up: Emergency Department; When: As needed; Reason: Worsening of condition. Follow up: Tone uCeva DO; When: 2 - 3 days; Reason: Recheck today's complaints, Continuance of care, Re-evaluation by your physician. Signatures: Dispatcher [employer] EDMS Nancie De Los Santos, ALIGNING INSPECTOR-C ALIGNING INSPECTOR-Aly Mcdonnell MD MD cha Joaquin, Henry, RN RN hj Gretel Guaman, GUSTAVO RN rb1 Corrections: (The following items were deleted from the chart) 05/28 15:51 15:50 05/28/2018 15:50 Discharged to Home. Impression: Abdominal aortic aneurysm, kb without rupture; Lower abdominal pain, unspecified. Condition is Stable. Forms are Medication Reconciliation Form, Thank You Letter, Antibiotic Education, Prescription Opioid Use. Follow up: Emergency Department; When: As needed; Reason: Worsening of condition. Follow up: Tone Cueva; When: 2 - 3 days; Reason: Recheck today's complaints, Continuance of care, Re-evaluation by your physician. kb 17:24 15:51 05/28/2018 15:50 Discharged to Home. Impression: Abdominal aortic aneurysm, rb1 without rupture - 3.8cm; Lower abdominal pain, unspecified; Enlarged pancreatic head. Condition is Stable. Forms are Medication Reconciliation Form, Thank You Letter, Antibiotic Education, Prescription Opioid Use. Follow up: Emergency Department; When: As needed; Reason: Worsening of condition. Follow up: Tone Cueva; When: 2 - 3 days; Reason: Recheck today's complaints, Continuance of care, Re-evaluation by your physician. kb
--- NOTE | 2018-05-28 15:51 | ER ---
Nurse's Notes [facility] Name: Dinorah Judd Age: 77 yrs Sex: Female : 1940 Arrival Date: 05/28/2018 Time: 11:24 Bed 16 Private MD: Tone Cueva H Diagnosis: Abdominal aortic aneurysm, without rupture-3.8cm;Lower abdominal pain, unspecified;Enlarged pancreatic head Presentation: 05/28 11:25 Presenting complaint: Patient states: my L side is hurting (abdomen/flank area) for a hj week; denies N/V; denies diarrhea;denies F/C;. Transition of care: patient was not received from another setting of care. Onset of symptoms was May 28, 2018. Risk Assessment: Do you want to hurt yourself or someone else? Patient reports no desire to harm self or others. Initial Sepsis Screen: Does the patient meet any 2 criteria? No. Patient's initial sepsis screen is negative. Does the patient have a suspected source of infection? No. Patient's initial sepsis screen is negative. Care prior to arrival: None. 11:25 Method Of Arrival: Ambulatory 11:25 Acuity: RICHAR 3 hj Triage Assessment: 11:29 General: Appears. Historical: - Allergies: 11:27 No Known Allergies; hj - PMHx: 11:27 None; hj - PSHx: 11:27 Hysterectomy; hj - Immunization history:: Adult Immunizations up to date. - Ebola Screening: : Patient negative for fever greater than or equal to 101.5 degrees Fahrenheit, and additional compatible Ebola Virus Disease symptoms. - Social history:: Smoking status: Patient uses tobacco products, smokes one pack cigarettes per day. Screenin:30 Abuse screen: Denies threats or abuse. Nutritional screening: No deficits noted. rb1 Tuberculosis screening: No symptoms or risk factors identified. Fall Risk None identified. Assessment: 12:30 General: Appears in no apparent distress. comfortable, Behavior is calm, cooperative, rb1 Denies fever. Pain: Complains of pain in left side Pain currently is 7 out of 10 on a pain scale. Neuro: Level of Consciousness is awake, obeys commands, confused, Oriented to person, place, situation. Cardiovascular: Capillary refill < 3 seconds is brisk in bilateral fingers. Respiratory: Airway is patent Respiratory effort is even, unlabored, Respiratory pattern is regular, symmetrical. GI: Bowel sounds present X 4 quads. Abd is soft. : No signs and/or symptoms were reported regarding the genitourinary system. Derm: Skin is pink, warm \T\ dry. Musculoskeletal: Range of motion: intact in all extremities. 13:30 Reassessment: Patient appears in no apparent distress at this time. No changes from rb1 previously documented assessment. 14:30 Reassessment: Patient appears in no apparent distress at this time. Patient and/or rb1 family updated on plan of care and expected duration. Pain level reassessed. Patient is alert, oriented x 3, equal unlabored respirations, skin warm/dry/pink. Pt. ambulated to the restroom without difficulty. 15:30 Reassessment: Patient appears in no apparent distress at this time. No changes from rb1 previously documented assessment. 16:24 Reassessment: Patient appears in no apparent distress at this time. Patient and/or rb1 family updated on plan of care and expected duration. Pain level reassessed. Patient is alert, oriented x 3, equal unlabored respirations, skin warm/dry/pink. pt. ambulated to the restroom without difficulty. Vital Signs: 11:27 BP 131 / 99; Pulse 78; Resp 18; Temp 98.4(O); Pulse Ox 97% on R/A; Weight 54.43 kg; hj Height 5 ft. 2 in. (157.48 cm); Pain 7/10; 12:30 BP 153 / 71; Pulse 73; Resp 17; Pulse Ox 98% on R/A; rb1 13:30 BP 163 / 76; Pulse 72; Resp 15; Pulse Ox 97% on R/A; rb1 15:30 BP 181 / 70; Pulse 68; Resp 19; Pulse Ox 97% ; rb1 16:15 BP 185 / 92; Pulse 75; Resp 19; Pulse Ox 99% on R/A; rb1 11:27 Body Mass Index 21.95 (54.43 kg, 157.48 cm) hj 15:30 Pt. just walked back from the restroom. rb1 ED Course: 11:24 Patient arrived in ED. as 11:24 Tone Cueva DO is Private Physician. as 11:26 Triage completed. hj 11:28 Arm band placed on left wrist. hj 12:28 Nancie De Los Santos FNP-C [facility]. kb 12:28 Aly Linn MD is Attending Physician. kb 12:30 Patient has correct armband on for positive identification. Placed in gown. Bed in low rb1 position. Call light in reach. Side rails up X 1. Pulse ox on. NIBP on. Warm blanket given. 12:37 Gretel Guaman, RN is Primary Nurse. rb1 12:48 Urine collected: clean catch specimen, cloudy, cornelius colored. jb1 13:00 Inserted saline lock: 22 gauge in right antecubital area, using aseptic technique. rb1 Blood collected. 14:44 CT Abd/Pelvis - W/Contrast In Process Unspecified. EDMS 15:50 Tone Cueva DO is Referral Physician. kb 16:24 No provider procedures requiring assistance completed. IV discontinued, intact, rb1 bleeding controlled, No redness/swelling at site. Pressure dressing applied. Administered Medications: 15:40 Drug: NS 0.9% 1000 ml Route: IV; Rate: 1000 ml; Site: right antecubital; rb1 16:10 Follow up: IV Status: Completed infusion; IV Intake: 275ml rb1 15:40 Drug: morphine 2 mg Route: IVP; Site: right antecubital; rb1 15:55 Follow up: Response: No adverse reaction; Pain is decreased rb1 15:40 Drug: Zofran 4 mg Route: IVP; Site: right antecubital; rb1 15:55 Follow up: Response: No adverse reaction rb1 Intake: 16:10 IV: 275ml; Total: 275ml. rb1 Outcome: 15:50 Discharge ordered by . kb 16:24 Patient left the ED. rb1 16:24 Discharged to home ambulatory. rb1 16:24 Condition: stable 16:24 Discharge instructions given to patient, Instructed on discharge instructions, follow up and referral plans. medication usage, Demonstrated understanding of instructions, follow-up care, medications, Prescriptions given X 1. Signatures: Dispatcher [employer] EDMS Bowen Ly jb1 Nancie De Los Santos FNP-C FNP-Tammy Escobar Henry, RN RN Gretel Guaman, RN RN rb1 Corrections: (The following items were deleted from the chart) 11:29 11:27 Pulse 78bpm; Resp 18bpm; Pulse Ox 97% RA; Temp 98.4F Oral; 54.43 kg; Height 5 ft. hj 2 in.; BMI: 21.9; Pain 7/10; hj 17:26 17:24 Patient left the ED. rb1 rb1
[2018-05-28 16:38] LABS: Urine Bacteria <20 /HPF (<20); Urine Culture Reflex Order REFLEXED; Urine Mucus 1+ /HPF (NONE SEEN)
[2018-05-28 17:30] VITALS: TEMP 98.4
[2018-05-28 17:33] VITALS: O2SAT 97
[2018-05-28 17:34] VITALS: BP 181/70
== END 2018-05-28 17:24 | disposition home or self-care (01) ==
LOC: ER 11:22
DX: I71.4 Abdominal aortic aneurysm, without rupture (principal); Q45.3 Other congenital malformations of pancreas and pancreatic duct
CPT/HCPCS: 87088; 85025; 87086; 80048; 36415; 83690; 74177; Q9967; J2270; J7030; J2405; 81003; 81015; 96374; 96375; 99284

== ENCOUNTER 2018-09-19 10:38 | Inpatient (IN) | payer OTHER ==
[2018-09-19] MEDS ORDERED: NA CHLORIDE 0.9% 1,000 ML ONE (11:14)
[2018-09-19] MEDS ORDERED: FAMOTIDINE 20 MG/2 ML VIAL IV ONE (11:18)
[2018-09-19] MEDS ORDERED: ONDANSETRON 4 MG/2 ML VIAL ONE (11:18)
[2018-09-19] MEDS ORDERED: MORPHINE 2 MG/ML SYR ONE (11:18)
[2018-09-19 11:36] LABS: Absolute Lymphocytes (CBC) 1.7 K/uL (0.7-4.9); Basophils % 0.8 % (0-1.3); Hematocrit 37.5 % (36.0-45.0); Lymphocytes % 17.1 % (15.3-44.8); MPV 6.6 fL (7.6-11.3); RBC Red Blood Cell Count 4.05 M/uL (3.86-4.86)
[2018-09-19 11:51] LABS: ALT/SGPT 10 U/L (12-78); AST/SGOT 16 U/L (15-37); Albumin 3.7 g/dL (3.4-5.0); Alkaline Phosphatase 93 U/L (45-117); BUN Blood Urea Nitrogen 6 mg/dL (7-18); Bicarbonate 28 mmol/L (21-32); Bilirubin Direct < 0.1 mg/dL (0-0.2); Bilirubin Total 0.4 mg/dL (0.2-1.0); Glucose Level 96 mg/dL (74-106); Lipase 115 U/L (73-393); Potassium 3.5 mmol/L (3.5-5.1); Protein, Total 6.6 g/dL (6.4-8.2); Sodium Level 143 mmol/L (136-145)
--- NOTE | 2018-09-19 12:28 | RAD REPORT ---
EXAM DESCRIPTION: Vicki Single View09/19/2018 11:28 am CLINICAL HISTORY: Abdominal pain COMPARISON: May 2018 FINDINGS: The lungs appear clear of acute infiltrate. The heart is mildly enlarged The aorta is tortuous/ectatic IMPRESSION: No acute abnormalities displayed
--- NOTE | 2018-09-19 13:13 | RAD REPORT ---
EXAM DESCRIPTION: CT - Abdomen Pelvis W Contrast - 09/19/2018 12:35 pm CLINICAL HISTORY: Abdominal pain, epigastric pain, prior hysterectomy COMPARISON: May 2018 CT imaging TECHNIQUE: Biphasic, helical CT imaging of the abdomen and pelvis was performed following 100 ml non -ionic IV contrast. Oral contrast is present in the colon. It is unknown if this was administered for the examination or is from a prior study. All CT scans are performed using dose optimization technique as appropriate and may include automated exposure control or mA/KV adjustment according to patient size. FINDINGS: No pericardial thickening or effusion. Right lung base is clear. In the left lung base abu tting the diaphragmatic pleura there is a 2.3 x 1.4 centimeter area of irregular mass density. This e xtends somewhat superiorly along the bronchovascular structures. Mild bronchial wall thickening is se en. There was no abnormality at all in the May imaging. In the acute clinical setting this is most likely a small pneumonia. Development of a malignancy cannot be excluded this age. No pleural fluid. Liver size is normal. Benign calcifications are present in the liver. No suspicious liver parenchymal finding. No splenic abnormality. Gallbladder is absent. Pneumobilia is present. No biliary tree dila tation identified. There is a general fullness to the pancreatic head with relatively atrophic body a nd tail. Pancreatic tissue is homogeneous without identifiable mass. This pattern is not substantiall y different from prior imaging. Calcifications are present in the atrophic pancreas. No pancreatic medellin rgical history is delineated. Symmetric renal function is seen with no hydronephrosis or suspicious renal mass. No pyelonephritis o r acute parenchymal process. No bladder abnormalities. No adrenal abnormalities. Stomach is distended by air but no gastric outlet suspected. No dilatation of the duodenum. No gastri c wall thickening or mass identified. Moderate stool volume is present in the nondilated colon from c ecum to splenic flexure. Left-sided colon is not dilated and no acute colon process is seen. Patient has numerous distended to borderline dilated small bowel loops in the upper abdomen. Bowel loops are tortuous. Course of the small bowel may indicate an internal hernia. A specific transition site is no t identified and no small bowel mass seen. No free air, free fluid or inflammatory stranding. No mass or bulky lymphadenopathy. No omental thi ckening. Disc and bony degenerative changes are present. No destructive or acute bone process seen. Distal thoracic aorta is 2.6 cm in diameter. Aorta is 2.9 cm in diameter at the heather of the diaphragm . Infrarenal aortic aneurysm is present measuring 4.3 cm AP x 3.8 cm TR. Moderate mural thrombus is p resent along the anterior and each lateral margin. No centrally displaced calcifications. Overall pat ient has prominent vascular calcifications. Numerous surgical clips are present at the right inguinal canal. IMPRESSION: A 2.3 x 1.4 centimeter irregular mass is present at the left lung base abutting the diap hragmatic hernia. No finding was present in May. In the acute setting this is most likely a focal p neumonia and there is some bronchial wall thickening present at this site. Left lung base neoplastic mass is not excluded and continued follow-up needed with re-evaluation in 3 months. Distended the borderline dilation of multiple proximal small bowel loops. Small bowel loops have an u nusual tortuous course and there is some swirling of the central mesenteries that would suggest the p atient has an internal hernia. Partial small bowel obstruction is possible. No obstructing mass or c learly defined point of transition. Contrast material is present in the colon that shows no acute finding. It is uncertain if contrast wa s administered for this study for this is from a prior outside diagnostic study. A 4.3 centimeter infrarenal abdominal aortic aneurysm is present. This measure slightly larger than A pril. No displaced calcification. No evidence for leakage. Fullness of the pancreas with relative atrophy of the pancreatic tail and body. No focal mass seen in this is stable from prior imaging.
--- NOTE | 2018-09-19 14:11 | EDPHYS ---
Physician Documentation [facility] Name: Dinorah Judd Age: 77 yrs Sex: Female : 1940 Arrival Date: 09/19/2018 Time: 10:42 Bed 13 Private MD: Tone Cueva H ED Physician Sacha Hudson HPI: 09/19 13:14 This 77 yrs old Female presents to ER via Ambulatory with complaints of kdr Abdominal Pain. 13:14 The patient presents with abdominal pain in the epigastric area, in the upper abdomen. kdr Onset: The symptoms/episode began/occurred gradually, 2 day(s) ago. The symptoms do not radiate. Associated signs and symptoms: Pertinent positives: nausea, Pertinent negatives: anorexia, blood in stools, chest pain, constipation, diarrhea, dysuria, headache, hematuria, palpitations, shortness of breath. The symptoms are described as achy, constant, crampy, dull, vague, waxing/waning. Modifying factors: The symptoms are alleviated by nothing, the symptoms are aggravated by alcohol, nothing. Severity of pain: At its worst the pain was mild moderate in the emergency department the pain has improved mildly. The patient has not experienced similar symptoms in the past. The patient has not recently seen a physician. Historical: - Allergies: 11:01 No Known Allergies; hb - Home Meds: 11:33 None [Active]; aj - PMHx: 11:33 None; aj - PSHx: 11:01 Hysterectomy; hb - Immunization history:: Adult Immunizations up to date. - Social history:: Smoking status: Patient uses tobacco products, smokes one-half pack cigarettes per day. - Ebola Screening: : No symptoms or risks identified at this time. ROS: 13:14 Constitutional: Negative for fever, chills, and weight loss, Eyes: Negative for injury, kdr pain, redness, and discharge, Neck: Negative for injury, pain, and swelling, Cardiovascular: Negative for chest pain, palpitations, and edema, Respiratory: Negative for shortness of breath, cough, wheezing, and pleuritic chest pain, Back: Negative for injury and pain, : Negative for injury, bleeding, discharge, and swelling, MS/Extremity: Negative for injury and deformity, Skin: Negative for injury, rash, and discoloration, Neuro: Negative for headache, weakness, numbness, tingling, and seizure activity. Psych: Negative for depression, anxiety, suicide ideation, homicidal ideation, and hallucinations, Allergy/Immunology: Negative for hives, rash, and allergies, Endocrine: Negative for neck swelling, polydipsia, polyuria, polyphagia, and marked weight changes, Hematologic/Lymphatic: Negative for swollen nodes, abnormal bleeding, and unusual bruising. 13:14 Abdomen/GI: Positive for abdominal pain, nausea, Negative for vomiting, diarrhea, constipation, abdominal cramps, abdominal distension, anorexia, dysphagia, hematemesis, black/tarry stool, rectal pain, rectal bleeding, bowel incontinence. Exam: 13:14 Constitutional: This is a well developed, well nourished patient who is awake, alert, kdr and in no acute distress. Head/Face: Normocephalic, atraumatic. Eyes: Pupils equal round and reactive to light, extra-ocular motions intact. Lids and lashes normal. Conjunctiva and sclera are non-icteric and not injected. Cornea within normal limits. Periorbital areas with no swelling, redness, or edema. Neck: Trachea midline, no thyromegaly or masses palpated, and no cervical lymphadenopathy. Supple, full range of motion without nuchal rigidity, or vertebral point tenderness. No Meningismus. Chest/axilla: Normal chest wall appearance and motion. Nontender with no deformity. No lesions are appreciated. Cardiovascular: Regular rate and rhythm with a normal S1 and S2. No gallops, murmurs, or rubs. Normal PMI, no JVD. No pulse deficits. Respiratory: Lungs have equal breath sounds bilaterally, clear to auscultation and percussion. No rales, rhonchi or wheezes noted. No increased work of breathing, no retractions or nasal flaring. Back: No spinal tenderness. No costovertebral tenderness. Full range of motion. Skin: Warm, dry with normal turgor. Normal color with no rashes, no lesions, and no evidence of cellulitis. Neuro: Awake and alert, GCS 15, oriented to person, place, time, and situation. Cranial nerves II-XII grossly intact. Motor strength 5/5 in all extremities. Sensory grossly intact. Cerebellar exam normal. Normal gait. Psych: Awake, alert, with orientation to person, place and time. Behavior, mood, and affect are within normal limits. 13:14 Abdomen/GI: Inspection: abdomen appears normal, Bowel sounds: active, all quadrants, Palpation: soft, mild abdominal tenderness, in the epigastric area, right upper quadrant and left upper quadrant, mass, is not appreciated, rebound tenderness, is not appreciated. Vital Signs: 11:01 BP 95 / 81; Pulse 69; Resp 20; Temp 98.4; Pulse Ox 100% ; Weight 54.43 kg; Height 5 ft. hb 2 in. (157.48 cm); Pain 2/10; 12:18 BP 140 / 33; Pulse 52; Resp 16; Pulse Ox 98% on R/A; aj 11:01 Body Mass Index 21.95 (54.43 kg, 157.48 cm) hb MDM: 13:14 Data reviewed: vital signs, nurses notes, lab test result(s), radiologic studies. kdr Counseling: I had a detailed discussion with the patient and/or guardian regarding: the historical points, exam findings, and any diagnostic results supporting the discharge/admit diagnosis, lab results, radiology results. 14:10 Patient medically screened. kdr 09/19 11:01 Order name: Basic Metabolic Panel; Complete Time: 13:13 kdr 09/19 11:01 Order name: CBC with Diff; Complete Time: 13:13 kdr 09/19 11:01 Order name: Creatinine for Radiology; Complete Time: 13:13 kdr 09/19 11:01 Order name: Hepatic Function; Complete Time: 13:13 kdr 09/19 11:01 Order name: Lipase; Complete Time: 13:13 kdr 09/19 11:11 Order name: Troponin (emerg Dept Use Only); Complete Time: 13:13 kdr 09/19 11:01 Order name: IV Saline Lock; Complete Time: 11:25 kdr 09/19 11:13 Order name: CT Abd/Pelvis - IV Contrast Only; Complete Time: 13:48 kdr 09/19 11:13 Order name: CXR XRAY; Complete Time: 13:13 kdr 09/19 11:35 Order name: EKG Electrocardiogram; Complete Time: 12:02 EDMS 09/19 11:01 Order name: Labs collected and sent; Complete Time: 11:25 kdr 09/19 11:11 Order name: EKG - Nurse/Tech; Complete Time: 11:30 kdr Administered Medications: 11:29 Drug: NS 0.9% 500 ml Route: IV; Rate: bolus; Site: right antecubital; aj 11:29 Drug: morphine 2 mg Route: IVP; Site: right antecubital; aj 11:29 Drug: Zofran 4 mg Route: IVP; Site: right antecubital; aj 11:29 Drug: Pepcid 20 mg Route: IVP; Site: right antecubital; aj Disposition: 09/19/18 14:10 Hospitalization ordered by Asiya Doll for Observation. Preliminary diagnosis are Abdominal and pelvic pain, Early small bowell obstruction. - Bed requested for Telemetry/MedSurg (observation). - Status is Observation. aj - Condition is Fair. - Problem is new. - Symptoms have improved. UTI on Admission? No Signatures: Dispatcher [employer] EDMS Octavia Anderson RN RN aj Rittger, Kevin, MD MD kdr Solis, Maria ms Chinyere Wick RN RN Nadeem Burger RN RN ja1 Corrections: (The following items were deleted from the chart) 14:38 14:10 Hospitalization Ordered by Asiya Doll MD for Observation. Preliminary diagnosis ms is Abdominal and pelvic pain; Early small bowell obstruction. Bed requested for Telemetry/MedSurg (observation). Status is Observation. Condition is Fair. Problem is new. Symptoms have improved. UTI on Admission? No. kdr 15:10 14:38 09/19/2018 14:10 Hospitalization Ordered by Asiya Doll MD for Observation. ja1 Preliminary diagnosis is Abdominal and pelvic pain; Early small bowell obstruction. Bed requested for Telemetry/MedSurg (observation). Status is Observation. Condition is Fair. Problem is new. Symptoms have improved. UTI on Admission? No. ms 15:24 15:10 09/19/2018 14:10 Hospitalization Ordered by Asiya Doll MD for Observation. aj Preliminary diagnosis is Abdominal and pelvic pain; Early small bowell obstruction. Bed requested for Telemetry/MedSurg (observation). Status is Observation. Condition is Fair. Problem is new. Symptoms have improved. UTI on Admission? No. ja1
--- NOTE | 2018-09-19 14:11 | ER ---
Nurse's Notes [facility] Name: Dinorah Judd Age: 77 yrs Sex: Female : 1940 Arrival Date: 09/19/2018 Time: 10:42 Bed 13 Private MD: Tone Cueva H Diagnosis: Abdominal and pelvic pain;Early small bowell obstruction Presentation: 09/19 11:00 Presenting complaint: Upper abdominal pain x 2 days. Denies N/V/D/fever. Last normal BM hb was yesterday. Transition of care: patient was not received from another setting of care. Onset of symptoms was September 18, 2018. Risk Assessment: Do you want to hurt yourself or someone else? Patient reports no desire to harm self or others. Initial Sepsis Screen: Does the patient meet any 2 criteria? No. Patient's initial sepsis screen is negative. Does the patient have a suspected source of infection? No. Patient's initial sepsis screen is negative. Care prior to arrival: None. 11:00 Method Of Arrival: Ambulatory hb 11:00 Acuity: RICHAR 3 hb Historical: - Allergies: 11:01 No Known Allergies; hb - Home Meds: 11:33 None [Active]; aj - PMHx: 11:33 None; aj - PSHx: 11:01 Hysterectomy; hb - Immunization history:: Adult Immunizations up to date. - Social history:: Smoking status: Patient uses tobacco products, smokes one-half pack cigarettes per day. - Ebola Screening: : No symptoms or risks identified at this time. Screenin:30 Abuse screen: Denies threats or abuse. Denies injuries from another. Nutritional aj screening: No deficits noted. Tuberculosis screening: No symptoms or risk factors identified. Fall Risk None identified. Assessment: 11:30 General: Appears in no apparent distress. comfortable, Behavior is calm, cooperative, aj appropriate for age. Pain: Complains of pain in abdomen. Neuro: Level of Consciousness is awake, alert, obeys commands, Oriented to person, place, time, situation, Appropriate for age. Respiratory: Airway is patent Respiratory effort is even, unlabored, Respiratory pattern is regular, symmetrical. GI: Abdomen is flat, Bowel sounds present X 4 quads. Abd is soft Reports lower abdominal pain, upper abdominal pain. Derm: Skin is intact, is healthy with good turgor, Skin is pink, warm \T\ dry. normal. Vital Signs: 11:01 BP 95 / 81; Pulse 69; Resp 20; Temp 98.4; Pulse Ox 100% ; Weight 54.43 kg; Height 5 ft. hb 2 in. (157.48 cm); Pain 2/10; 12:18 BP 140 / 33; Pulse 52; Resp 16; Pulse Ox 98% on R/A; aj 11:01 Body Mass Index 21.95 (54.43 kg, 157.48 cm) hb ED Course: 10:42 Patient arrived in ED. mr 10:42 Tone Cueva DO is Private Physician. mr 11:01 Sacha Hudson MD is Attending Physician. kdr 11:01 Triage completed. hb 11:01 Arm band placed on. hb 11:10 Octavia Anderson, RN is Primary Nurse. aj 11:25 Initial lab(s) drawn, by in, sent to lab. Inserted saline lock: 22 gauge in right jb1 antecubital area, using aseptic technique. Blood collected. 11:27 X-ray completed. Portable x-ray completed in exam room. Patient tolerated procedure mh1 well. 11:30 Patient has correct armband on for positive identification. aj 11:31 CXR XRAY In Process Unspecified. EDMS 12:[address] via wheelchair. sw 12:30 CT completed. Patient tolerated procedure well. Patient moved back from CT. sw 12:36 CT Abd/Pelvis - IV Contrast Only In Process Unspecified. EDMS 14:09 Asiya Doll MD is Hospitalizing Provider. kdr 14:57 Report given to June CHEN. aj Administered Medications: 11:29 Drug: NS 0.9% 500 ml Route: IV; Rate: bolus; Site: right antecubital; aj 11:29 Drug: morphine 2 mg Route: IVP; Site: right antecubital; aj 11:29 Drug: Zofran 4 mg Route: IVP; Site: right antecubital; aj 11:29 Drug: Pepcid 20 mg Route: IVP; Site: right antecubital; aj Outcome: 14:10 Decision to Hospitalize by Provider. kdr 15:24 Patient left the ED. aj Signatures: Dispatcher [employer] EDMS Bowen Ly jb1 Octavia Anderson GUSTAVO RN Sacha Ferrer MD MD [facility] Sanam Logan [facility] Aline Adair Heather, GUSTAVO RN hb
[2018-09-19] MEDS ORDERED: ACETAMINOPHEN 650MG/RECT SUPP PR PRN (14:54)
[2018-09-19] MEDS ORDERED: ONDANSETRON 4 MG/2 ML VIAL IV PRN (14:54)
[2018-09-19] MEDS: D5.45NS W/KCL 20MEQ 1,000 ML IV SCH (15:30)
[2018-09-19] MEDS: ENOXAPARIN 40 MG/0.4 ML SQ SCH (15:31)
--- NOTE | 2018-09-19 16:15 | RAD REPORT ---
EXAM DESCRIPTION: CT - Thorax Wo Con - 09/19/2018 3:41 pm CLINICAL HISTORY: Lung mass, abnormal CT abdomen study, cough, COPD COMPARISON: CT abdomen and pelvis same day TECHNIQUE: Axial 5 mm thick images of the chest were obtained without IV contrast. All CT scans are performed using dose optimization technique as appropriate and may include automated exposure control or mA/KV adjustment according to patient size. FINDINGS: The small left lower lobe 2.3 cm mass abutting the diaphragmatic pleura is again noted. Th ere is stranding in the parenchyma around this mass. Bronchial structures extending towards this mass show wall thickening. Current presentation is nonspecific. There are findings that would support pne umonia or infectious/ inflammatory process. Malignancy cannot be excluded. No other mass or infiltrate seen. No pleural thickening or pleural effusion. No pneumothorax. No abnormal mediastinal or hilar masses or lymphadenopathy seen. No gross aortic or pulmonary artery finding suspected. Aortic calcifications are present. Coronary artery calcifications are present. Th ere is no pericardial thickening or effusion. No chest wall mass or abnormal axillary lymphadenopathy. IMPRESSION: Left lung base mass abutting the diaphragmatic pleura, detailed above and on the CT abdo men study, is the only significant finding on this examination. There secondary findings that could indicate this mass is an infectious/inflammatory process such as pneumonia. Malignancy is not excluded and needs continued close follow-up to assure resolution after any medical management. PET-CT imaging may not be helpful at this time as both malignancy and pneumonia would be PET positive.
--- NOTE | 2018-09-19 16:27 | EKG ---
Test Date: 2018-09-19 Test Time: 11:39:29 Technical Adjuster: SHANTELLE MEASUREMENT RESULTS: Intervals: Rate: 55 [place]: 152 QRSD: 150 QT: 522 QTc: 499 [place]: P: 65 [place]: 152 QRS: -6 T: 71 INTERPRETIVE STATEMENTS: Sinus bradycardia Left bundle branch block Abnormal ECG Compared to ECG 10/06/2017 20:54:46 Left bundle-branch block now present Sinus rhythm no longer present Left ventricular hypertrophy no longer present Early repolarization no longer present Electronically Signed On 09-19-18 16:25:44 CDT by Shayan Esteban
[2018-09-19] MEDS: ALBUTEROL 2.5 MG/3 ML NEB SOL NEB SCH (19:30)
[2018-09-20] MEDS ORDERED: HYDRALAZINE HCL 20 MG/ML VIAL IV PRN (00:46)
[2018-09-20] MEDS: D5.45NS W/KCL 20MEQ 1,000 ML IV SCH ×2 (01:00→03:26)
[2018-09-20] MEDS: MORPHINE 2 MG/ML SYR IV PRN ×3 (01:03→14:41)
[2018-09-20 01:38] LABS: Urine Appearance CLEAR; Urine Bilirubin NEGATIVE (NEG); Urine Blood 1+ (NEG); Urine Color YELLOW; Urine Glucose NEGATIVE (NEG); Urine Protein NEGATIVE (NEG); Urine Specific Gravity <=1.005 (1.005-1.030); Urine Urobilinogen 0.2 mg/dL (0.2-1.0)
[2018-09-20 01:39] LABS: Urine Microscopic Reflex ORDER UMIC
[2018-09-20] MEDS: ALBUTEROL 2.5 MG/3 ML NEB SOL NEB SCH ×3 (01:45→13:55)
--- NOTE | 2018-09-20 01:48 | HP ---
Date of Admission: 09/19/2018 Primary Care Physician: Dr. Cueva. Consultants: Dr. Aldana with General Surgery. Chief Complaint: Abdominal discomfort. History Of Present Illness: Patient is a 77-year-old female with past medical history of hyperlipide handy, anxiety, depression, choreiform movements, likely COPD, history of long-standing tobacco use, co mes in with abdominal discomfort. The patient states this started suddenly, associated with some [place] sea, but no vomiting. No radiation of her pain. She denies any diarrhea, constipation, blood in the stool. No fever or chills. The patient does report some cough with off-white to beige sputum produ ction. No ill contacts. The patient's symptoms are constant, progressive, described as crampy type of pain. Symptoms were aggravated by alcohol. The patient came into the ER for further evaluation. In the ER, her vital signs were stable. She was afebrile. Her workup revealed normal WBC count. C T scan of the abdomen and pelvis showed a possible partial small-bowel obstruction. Also had some ir regular mass present in the left lung base, possible pneumonia as there is some bronchial wall thicke celena present as well. Also incidental finding was 4.3 cm infrarenal abdominal aortic aneurysm, sligh tly larger than May. The patient was referred for admission. She was given IV fluids, morph ine, and antiemetics. When seen in the ER, she was awake, alert, oriented x3. Some mild distress. Past Medical History: Hyperlipidemia; anxiety; depression; history of choreiform movements, unclear etiology; as well as COPD, has not officially been diagnosed previously. Past Surgical History: Hysterectomy and gallbladder surgery as well. Allergies: NO KNOWN DRUG ALLERGIES. Medications: The patient does not take any medications at home. Family History: The patient denies any history of diabetes, hypertension, or heart disease in the [facility]. Review of Systems: Ten-point system reviewed, negative except as per HPI. Physical Examination: Vital Signs: Initial blood pressure is 95/81, pulse 69, respirations 20, temperature 98.4, O2 100% o n room air. General: Awake, alert, oriented x3. Elderly female, in some mild distress. HEENT: Normocephalic, atraumatic. PERRLA. EOMI. Dry mucous membranes. Oropharynx is clear. The patient is edentulous. Neck: Supple. No JVD. Trachea midline. CV: S1, S2. Regular rate and rhythm. No murmurs. Peripheral pulses present. Respiratory: Diminished breath sounds at the bases. No wheezing or stridor. No use of accessory mu scles. Gastrointestinal: Abdomen is soft. Mild distention. There is some tenderness to palpation. No rad ound or guarding. Absent bowel sounds. Extremities: No clubbing, cyanosis, or edema. No calf tenderness. Neuro: Cranial nerves 2 through 12 intact grossly. No focal neurological deficit. Speech is normal . The patient does have choreiform movements. Apparently, these have been going on since 2013 and p erhaps even before that. Skin: No rashes. Normal skin turgor. Psych: Mood is okay. Affect is full. Insight and judgment are fair. Laboratory Data: Sodium 143, potassium 3.5, chloride 110, CO2 of 28, BUN 6, creatinine 0.54, glucose 96, calcium 8.8. Troponin less than 0.02. WBC 9.8, H and H 12.8 and 37.5, platelets 185. Lipase 1 15. Imaging Studies: CT scan of the abdomen shows a 2.3 x 1.4 cm irregular mass present at the left lung base abutting the diaphragmatic hernia. No finding was present in May. On acute setting, this is most likely focal pneumonia and there is some bronchial wall thickening present at this site. Left lung base neoplastic mass not excluded. Distended borderline dilatation of multiple proximal small b owel loops. Small bowel loops have unusual tortuous course. There may be some swirling of the centr al mesenteric site, would suggest the patient has internal hernia. Partial small-bowel obstruction i s possible. No obstructing mass or clearly defined point of transition. Contrast material present i n the colon that shows no acute findings. Uncertain if contrast was administered for this study or i f this is from a prior outside diagnostic study. 4.3 cm infrarenal abdominal aortic aneurysm present , slightly larger than May. No displaced calcification, no evidence for leakage. Fullness of the pancreas with relative atrophy of the pancreatic tail and body. No focal mass seen. This is stable from prior imaging. Chest x-ray, personally reviewed, shows no acute abnormalities. Assessment And Plan: A 77-year-old female with: 1.Partial small bowel obstruction. We will keep patient n.p.o. and start on IV fluids with D5 half NS with 20 of K. We will check magnesium, phosphorus, and other electrolytes. Bowel rest. No need for NG tube placement. Case discussed with Dr. Aldana, General Surgery. Agrees with conservative t reatment. We will reassess with serial abdominal x-ray. 2.Left lower lobe 2 lobe lung mass, most likely this is pneumonia or atelectasis. We will obtain de dicated CT of the chest. There is no previous mass on May, unlikely for it to have grown thi s fast. The patient does have some cough, sputum production, however, no fevers. We will check proc alcitonin and start on antibiotics if needed, maybe acute bronchitis. We will wait on imaging studie s and procalcitonin. The patient currently is afebrile with normal white blood cell count. 3.Infrarenal aortic aneurysm 4.3 cm. The patient will need to follow up with CT Surgery. The patie nt was counseled to stop smoking. Repeat ultrasound in 6 months. 4.Nicotine dependence with cigarette smoking, continuous, counseled for less than 10 minutes. 5.Chronic obstructive pulmonary disease, chronic bronchitis. We will continue with albuterol treatm ents as needed. 6.Depression and anxiety. 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 8.Depression and anxiety. 9.Mixed hyperlipidemia. Plan: We will admit to Med/Surg, place as observation. ALESSIO Voice ID: [id number]
[2018-09-20 02:31] LABS: Urine Bacteria <20 /HPF (<20); Urine Culture Reflex Order REFLEXED; Urine RBC NONE SEEN /HPF (NONE SEEN)
[2018-09-20 05:36] VITALS: O2SAT 97
[2018-09-20 05:55] VITALS: TEMP 98.1
[2018-09-20 05:57] LABS: Basophils % 0.6 % (0-1.3); Hematocrit 33.6 % (36.0-45.0); Lymphocytes % 24.8 % (15.3-44.8); MPV 6.8 fL (7.6-11.3); RBC Red Blood Cell Count 3.63 M/uL (3.86-4.86)
[2018-09-20 06:16] LABS: ALT/SGPT 8 U/L (12-78); AST/SGOT 13 U/L (15-37); Albumin 3.2 g/dL (3.4-5.0); Alkaline Phosphatase 81 U/L (45-117); BUN Blood Urea Nitrogen 4 mg/dL (7-18); Bicarbonate 27 mmol/L (21-32); Bilirubin Total 0.4 mg/dL (0.2-1.0); Glucose Level 118 mg/dL (74-106); Magnesium 2.1 mg/dL (1.8-2.4); Phosphorus 2.6 mg/dL (2.5-4.9); Potassium 3.4 mmol/L (3.5-5.1); Protein, Total 5.9 g/dL (6.4-8.2); Sodium Level 143 mmol/L (136-145)
[2018-09-20] MEDS ORDERED: NA CHLORIDE 0.9% 250 ML ONE (07:30)
[2018-09-20] MEDS: KCL 20 MEQ/100 mL IVPB 20 MEQ/100 ML BAG IV SCH ×2 (07:33→11:23)
[2018-09-20] MEDS: ENOXAPARIN 40 MG/0.4 ML SQ SCH (08:40)
[2018-09-20] MEDS ORDERED: FAMOTIDINE 20 MG/2 ML VIAL IV SCH (09:00)
--- NOTE | 2018-09-20 12:08 | P.CNS ---
Date of Consult: 09/20/18 Reason for Consult: Abnormal CTs Chief Complaint: Left lower lobe lung mass History of Present Illness: Patient is 77 years of age a very poor historian admitted with a 2 week history of abdominal discomfort denies any nausea vomiting or diarrhea at this pain came on suddenly 2 weeks ago as been intermittent since then changes in the heavy smoker denies any pulmonary complaints no history of malignancy workup has been nondiagnostic apart from the left lower lobe lung mass Allergies No Known Allergies Allergy (Verified 09/19/18 15:36) Home Medications: NK [No Home Meds] 09/19/18 - Past Medical/Surgical History Diabetic: No -: anxiety -: hyperlipidemia -: COPD -: hysterectomy -: chanelle -: tonsillectomy - Social History Smoking Status: Current every day smoker Alcohol use: No CD- Drugs: No Caffeine use: Yes Place of Residence: Home Review of Systems General: Weakness Gastrointestinal: As per HPI Physical Examination Temp Pulse Resp BP Pulse Ox 98.1 F 61 18 152/66 H 96 09/20/18 04:00 09/20/18 04:00 09/20/18 08:13 09/20/18 04:00 09/20/18 08:13 General: Alert, In no apparent distress, Oriented x3 HEENT: Atraumatic Respiratory: Expiratory wheezes Cardiovascular: No edema Gastrointestinal: Normal bowel sounds, Soft and benign, Other (Patient has minimal tenderness) Musculoskeletal: No clubbing, No swelling, No contractures Laboratory Data (last 24 hrs) 09/20/18 05:37: Sodium 143, Potassium 3.4 L, BUN 4 L, Creatinine 0.48 L, Glucose 118 H, Phosphorus 2.6, Magnesium 2.1, Total Bilirubin 0.4, AST 13 L, ALT 8 L, Alkaline Phosphatase 81 09/20/18 05:37: WBC 8.2 D, Hgb 11.4 L, Hct 33.6 L, Plt Count 153 - Problems (1) Lung mass Current Visit: Yes Status: Acute Plan: Patient is 77 years of age with a history of COPD heavy smoker admitted with abdominal discomfort nondiagnostic workup. She does have a small left lower lobe mass abutting the diaphragm well-defined usual location for lung cancer I recommend follow up CT scan in 3 months patient has been console not to smoke vital signs are all stable discharge follow up with me in a couple of weeks he will also need outpatient pulmonary function testing labs are unremarkable
[2018-09-20] MEDS ORDERED: NA CHLORIDE 0.9% 250 ML IV ONE (12:21)
[2018-09-20] MEDS ORDERED: MINERAL OIL 30 ML UCUP PO ONE (12:33)
--- NOTE | 2018-09-20 13:07 | P.CNS ---
Date of Consult: 09/20/18 PC: I was asked to see this patient in regards to a possible small awhile obstruction peer HPC: Presented to the emergency room with abdominal pain nausea and vomiting. PMH: COPD PSHx: Previous hysterectomy SOC: No known allergy SYS REVIEW: No cough, wheeze, shortness of breath. No chest pain or palpitations. No urinary complaints. O/E awake alert stable at the moment HEENT: Within normal limits Chest: Chest movement equal bilaterally ABD: Soft nontender no masses are palpable LOCO: Intact DATA: CT scan showed possible small-bowel obstruction IMPRESSION: Patient clinically appears to be doing quite well. She has not had any bowel movements today yet. PLAN: The shoulder sees some mineral oil, she is also going downstairs for a small bowel series. Pending the results of these it may be able to feed her soon. She also has an area of concern in her chest of this being dealt with by the vice president of marketing.
--- NOTE | 2018-09-20 13:40 | RAD REPORT ---
EXAM DESCRIPTION: RAD - Abdomen Acute Series - 09/20/2018 1:07 pm CLINICAL HISTORY: Abdominal pain, partial small bowel obstruction history COMPARISON: CT study September 19, portable chest September 19 FINDINGS: Fibrotic lung pattern is similar to the prior day study. No new or progressive lung parenc hymal process. The small mass abutting the left diaphragmatic pleura on CT imaging is not clearly see n on plain film. Absence of visualization on this examination does not confirm resolution. No new or progressive pleural effusion. Heart size and pulmonary vasculature are normal. No pleural effusion, p neumothorax or other acute cardiopulmonary process seen. Numerous air-filled small bowel loops are present throughout the abdomen. Pattern is similar to sligh tly less prominent than on the prior day CT study. No free air or pneumatosis. Prominent stool volume seen in the left side of the colon. This is hyperdense. Patient had contrast material in the colon o n the prior day CT study. There has been some antegrade movement of this contrast opacified stool. No other suspicious for significant findings. IMPRESSION: Small bowel gas pattern remains prominent but does show some improvement from the CT ever dy. No free air or pneumatosis. No worsening. Antegrade movement of the contrast opacified stool within the colon.
[2018-09-20 14:26] VITALS: BP 183/86
--- NOTE | 2018-09-21 04:31 | DS ---
Date of Discharge: 09/20/2018 Consultants: Dr. Christine with Pulmonology and Dr. Aldana with General Surgery. Procedures: None. Discharge Diagnoses: 1.Partial small-bowel obstruction. 2.Left lower lobe lung mass, most likely pneumonia or atelectasis. Out[place] CT [place] 3 [place] [facility] 3.Infrarenal aortic aneurysm 4.3 cm. Repeat ultrasound in 6 months. 4.Nicotine dependence with cigarette smoking, continuous. 5.Chronic obstructive pulmonary disease, chronic bronchitis, PFTs as outpatient. 6.Depression and anxiety, stable. 7.History of choreiform movements. 8.Mixed hyperlipidemia. Hospital Course: Patient is a 77-year-old female with past medical history of hyperlipidemia, anxiet y, depression, choreiform movements, underlying COPD, with no official diagnosis, who continues to sm paresh, comes in with abdominal discomfort. She was found to have a partial small-bowel obstruction on CT scan. Patient was admitted to the hospital for further evaluation. She was placed on conservativ e treatment with n.p.o. status, IV fluids. She did not require an NG tube, as she did not have any c ontinuous vomiting. Patient's nausea abdominal pain improved. She was able to ambulate. She was se en by a surgeon, Dr. Aldana, who did not recommend any surgical intervention. Patient was started o n a clear liquid diet after she was able to pass flatus. Patient did well with clear liquids her t was advanced to GI soft and patient was able to tolerate her diet. She was then cleared for discha rge from Dr. Aldana's standpoint. Patient had incidental finding of 4.3 cm infrarenal abdominal aortic aneurysm. I explained to her th e significance of the aneurysm, stating that she needs to quit smoking, which is worsening and causin g the aneurysm. She needs a repeat ultrasound in 6 months and she needs to establish care with a CT surgeon within the next 2-4 weeks for evaluation of this aneurysm. Daughter was also at the bedside. Patient was seen by Dr. Christine with pulmonology regarding this possible mass. The dedicated CT c hest showed a left lower lobe lung mass abutting the diaphragm. This is a highly unusual place for l nehemiah cancer. There is no previous mass on the May study and is unlikely for a mass to grow in this time. Patient will need a repeat CT chest in 3 months. Patient was evaluated by Dr. Christine, who d id not recommend any bronchoscopy at this time. Patient understands the importance of following up w ith repeat CT chest and to follow up with Dr. Christine for outpatient PFTs. She understands that thi s mass may be malignant and if not diagnosed and treated, may result in worsening of her condition. The patient and daughter voiced understanding. Patient was then cleared for discharge and was sent h [facility] in a stable condition. Medications: As per medication reconciliation list. Followup: Follow up with primary care physician, Dr. Cueva in 2-3 days. Follow up with mainframe systems administrator, Dr. Christine in 2 weeks. Follow up with Dr. [facility] as needed for her foot. Return to ER fo r worsening condition. Diet: Mcminn diet. Activity: As tolerated. Physical Examination: General: Awake, alert, oriented x3. No acute distress, elderly female. CV: S1, S2. No murmurs. Respiratory: Moving air well bilaterally. Abdomen: Abdomen is soft, nontender, nondistended. Positive bowel sounds. Extremities: No clubbing, cyanosis, or edema. Neurologic: Nonfocal. Skin: Patient has a fungal infection of the left great toenail. Time: Total time spent discharging the patient was 38 minutes. ALESSIO Voice ID: [id number] Report ID: [id number]
== END 2018-09-20 17:54 | disposition home or self-care (01) | DRG 388 ==
LOC: ER 10:38 → ERHOLD 14:20 → 2ND 15:01 → 4TH 20:23 → OBSVTOIN 09-20 08:16
PROVIDERS: ADMIT Family Medicine; ATTEND Family Medicine
DX: K56.609 Unspecified intestinal obstruction, unspecified as to partial versus complete obstruction (principal); J18.9 Pneumonia, unspecified organism; J98.11 Atelectasis; R91.8 Other nonspecific abnormal finding of lung field; I71.4 Abdominal aortic aneurysm, without rupture; F17.210 Nicotine dependence, cigarettes, uncomplicated; J44.9 Chronic obstructive pulmonary disease, unspecified; F41.8 Other specified anxiety disorders; G25.4 Drug-induced chorea; T43.95XA Adverse effect of unspecified psychotropic drug, initial encounter; E78.2 Mixed hyperlipidemia
CPT/HCPCS: 36415; 71045; 71250; 74022; 74177; 80048; 80053; 80076; 81003; 81015; 83690; 83735; 84100; 84145; 84484; 85025; 87077; 87086; 87088; 87186; 93005; 94640; 94760; 96374; 96375; 99284; G0378; J1650; J2270; J2405; J7030; Q9967